=== PATIENT | male | born 1935 | race Caucasian/White ===

== ENCOUNTER 2018-01-20 13:28 | Inpatient (IN) | payer MEDICARE, MEDICAID ==
[~2018-01-20 13:28] MED LIST: Heparin 1,000 UNITS/ML VIAL ONE
[2018-01-20] MEDS ORDERED: Propofol 1,000 MG/100 ML VIAL IV ONE (13:42)
[2018-01-20 13:45] LABS: CO2 Tension 47.2 mmHg (35.0-45.0); O2 Tension (PaO2) 91.1 mmHg (80.0-100.0); pH, Arterial 7.25 (7.35-7.45)
[2018-01-20 13:46] LABS: Actual Bicarbonate (HCO3a) 20.1 mEq/L (22-26); Base Excess (BEa) -7.3 mEq/L (0 (+/-) 2.5); Calcium, Ionized 1.1 mmol/L (1.12-1.30); Hemoglobin (Hb) 16.3 g/dL (14.0-18.0)
[2018-01-20 13:47] LABS: Analyzer IN Cardio ER; Puncture Site LRA
[2018-01-20 13:53] LABS: Hemoglobin 16.8 g/dL (14.0-18.0); Mean Corpuscular HGB CONC 32.1 g/dL (32.0-36.0); Mean Corpuscular Hemoglobin 29.2 pg (27.0-31.0); Mean Corpuscular Volume 91.2 fl (80.0-94.0); Mean Platelet Volume 7.8 fL (7.4-10.4); Platelet Count 301 thou/uL (130-400); Red Blood Cell (RBC) Count 5.76 mill/uL (4.70-6.10)
[2018-01-20] MEDS ORDERED: Famotidine 40 MG/4 ML VIAL SLOW IVP SCH ×3 (14:00→21:00)
[2018-01-20 14:08] LABS: Band 12 % (5-11); Lymphocytes 35 % (21-51); MDiff Complete? YES; Metamyelocyte 1 % (0-0); Monocytes 5 % (0-10); Neutrophil 33 % (42-75); PLT Morphology Comment Appears Adequate; RBC Morphology Normal; Reactive Lymphocytes 12 % (0-10)
[2018-01-20] MEDS ORDERED: Aspirin 300 MG Suppository ONE (14:48)
--- NOTE | 2018-01-20 14:53 | CT ---
CT CERVICAL SPINE NONCONTRAST: Date: 01/20/18 HISTORY: Fall. Neck injury. FINDINGS: Vertebral body height and alignment are maintained. Cervicothoracic junction is intact. There is mult ilevel disc space narrowing and prominent osteophytosis. Minimal degenerative retrolisthesis is prese nt at the C4-5 level where central canal stenosis and right foraminal stenosis are also most severe. No acute fracture or dislocation. Nasogastric tube and endotracheal catheter are partially visualized . IMPRESSION: Cervical spondylosis. No acute osseous abnormalities are demonstrated. POS: [facility]
--- NOTE | 2018-01-20 15:01 | CT ---
CT BRAIN NONCONTRAST: DATE: 01/20/18 TIME: 1413 HOURS HISTORY: 82-year-old male with altered mental status (Chanda coma scale of 4) after being attacked by a swarm of bees. COMPARISON: 01/08/13 FINDINGS: Nasogastric tube is looped in the oropharynx, incompletely visualized. Endotracheal tube is visualize d in the oral cavity, incompletely visualized. No other interval change is identified compared to 01/08/13. Again demonstrated are the large regions of encephalomalacia and gliosis involving the left temporal, parietal, and occipital lobes, and smal l portions of the left superior frontal lobe. 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 There is no obstructive hydrocephalus, acute intra-axial or extra-axial hemorrhage, mass effe ct, or midline shift. The calvarium is intact. The paranasal sinuses and bilateral tympanomastoid cav ities are grossly clear. No interval change in the intracranial contents compared to 01/08/13. IMPRESSION: 1. No acute intracranial findings. 2. Evidence for large infarctions in the left middle cerebral artery territory and left posterior ce rebral artery territory. 3. Status post intubation and nasogastric tube placement. The nasogastric tube is looped in the orop harynx. WILLY Huber POS: [facility]
--- NOTE | 2018-01-20 15:07 | RAD ---
PORTABLE CHEST 1 VIEW: DATE: 01/20/18. TIME: 1:46 p.m. 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 Respiratory failure . FINDINGS: There is an endotracheal tube with tip at the level of the clavicular heads. The heart size is adelfo l. There is atelectatic change in the left lung base. Opacity in the right inferomedial lung base i s also suggestive of atelectatic change. No pneumothoraces or large effusions are seen. POS: C
[2018-01-20] MEDS ORDERED: Milk Of Magnesia 30 ML UDCUP PO PRN (16:26)
[2018-01-20] MEDS ORDERED: Lacri-Lube Opth Oint 3.5 GM TUBE EA EYE PRN (16:26)
[2018-01-20 16:29] LABS: Albumin 3.9 g/dL (3.4-4.8)
[2018-01-20 16:30] LABS: Calcium 9.2 mg/dL (7.8-10.44); Chloride 101 mmol/L (98-107); Sodium 138 mmol/L (136-145)
[2018-01-20 16:31] LABS: Glucose 245 mg/dL (83-110)
[2018-01-20 16:33] LABS: Anion Gap 24 mmol/L (10-20); Bilirubin, Total 0.8 mg/dL (0.2-1.2); Carbon Dioxide 16 mmol/L (23-31)
[2018-01-20 16:34] LABS: Alkaline Phosphatase 144 U/L (40-150)
[2018-01-20 16:35] LABS: BUN (Urea Nitrogen) 13 mg/dL (8.4-25.7); Calc. Creatinine Clearance 0 mL/min (70-130); Estimated GFR-MDRD 38
[2018-01-20 16:37] LABS: ALT (SGPT) 43 U/L (8-55)
[2018-01-20 16:42] LABS: Potassium 2.9 mmol/L (3.5-5.1)
[2018-01-20] MEDS ORDERED: Lorazepam 2 MG/ML VIAL SLOW IVP PRN (16:43)
[2018-01-20] MEDS ORDERED: Propofol BOLUS 1,000 MG/100 ML VIAL IV PRN (16:43)
[2018-01-20] MEDS ORDERED: Fentanyl BOLUS 250 ML IVPB PRN (16:43)
[2018-01-20] MEDS ORDERED: Morphine 4 MG/ML VIAL SLOW IVP PRN (16:43)
[2018-01-20] MEDS ORDERED: fentaNYL Citrate/PF 2,000 MCG in Sodium Chloride 0.9% 60 ML IV SCH (16:43)
[2018-01-20] MEDS ORDERED: Ventilator Sedation Protocol 1 EACH FS SCH (16:45)
[2018-01-20 16:46] LABS: AST (SGOT) 134 U/L (5-34)
[2018-01-20 16:47] LABS: Protein, Total 8.9 g/dL (5.8-8.1)
[2018-01-20] MEDS: Sodium Chloride 0.9% 1,000 ML IV SCH (17:50)
[2018-01-20] MEDS: diphenhydrAMINE 50 MG/ML VIAL IVP SCH ×2 (17:54→22:54)
[2018-01-20] MEDS ORDERED: Potassium Chloride 40 MEQ in Premix Bag 1 BAG IVPB PRN (19:34)
[2018-01-20] MEDS ORDERED: Potassium Phosphate 15 MMOL in Sodium Chloride 0.9% 250 ML 250 ML IV PRN (19:34)
[2018-01-20] MEDS ORDERED: Potassium Chloride 20 MEQ TAB PO PRN (19:34)
[2018-01-20] MEDS ORDERED: Magnesium Oxide 400 MG TAB PO PRN ×2 (19:34)
[2018-01-20] MEDS ORDERED: CCU ELECTROLYTE REPLACEMENT PROTOCOL FS PRN (19:34)
[2018-01-20] MEDS ORDERED: Potassium Phosphate 9 MMOL in Sodium Chloride 0.9% 100 ML IVPB PRN (19:34)
[2018-01-20] MEDS ORDERED: Magnesium 2 GM/NS 0.9% 100 ML 2 GM in Premix Bag 1 BAG IVPB PRN (19:34)
[2018-01-20] MEDS ORDERED: Potassium Phosphate 12 MMOL in Sodium Chloride 0.9% 250 ML 250 ML IV PRN (19:34)
[2018-01-20] MEDS ORDERED: Potassium Chloride 40 MEQ in Sodium Chloride 0.9% 250 ML 250 ML IVPB PRN (19:34)
[2018-01-20] MEDS: Pantoprazole 40 MG VIAL IVP SCH (20:48)
--- NOTE | 2018-01-20 22:02 | HP ---
DATE OF ADMISSION: 01/20/2018 CHIEF COMPLAINT: Severe anaphylaxis. HISTORY OF PRESENT ILLNESS: Mr. Srini Pires is an 82-year-old male who was brought in by EMS with anaphylaxis. The patient was riding a lawnmower and mowing the lawn when he was attacked by the multiple bees. It took the EMS 45 minutes to remove the patient from bee vicinity. The patient was lethargic ,had decreased level of consciousness and was incoherently mumbling. The patient was intubated at the scene. He had similar episode of anaphylaxis to bee sting 3 years ago. So, the patient was brought to the emergency room. The patient received Pepcid, started on IV fluids, and kept on propofol and admitted to CCU for close monitoring and also was started on DuoNebs and Solu-Medrol. PAST MEDICAL HISTORY: 1. Hypertension. 2. Hyperlipidemia. 3. History of CVA in 2011. 4. History of respiratory failure secondary to bee sting in 2014. PAST SURGICAL HISTORY: Nothing significant. CURRENT MEDICATIONS: The patient is supposed to be on Norvasc 10 mg daily, Tylenol p.r.n., and Protonix 40 mg daily. ALLERGIES: BEE STING. FAMILY HISTORY: Nothing of interest. SOCIAL HISTORY: The patient lives alone. No history of smoking. No history of alcohol intake. REVIEW OF SYSTEMS: Unable to obtain because the patient was intubated and sedated. PHYSICAL EXAMINATION: VITAL SIGNS: Temperature 98, pulse 115, respirations 19, blood pressure 150/90. HEENT: Head is normocephalic, atraumatic. Pupils equal and reactive. Nasopharynx not examined. LUNGS: Air entry present bilaterally, no rales, no rhonchi present bilaterally. CARDIAC: S1, S2 regular. ABDOMEN: Soft, distant, no tenderness. Normal bowel sounds present. RECTAL: Not examined. SKIN: There are multiple bee sting fine seen on the face and scalp and the neck. LABORATORY AND X-RAY FINDINGS: CBC shows WBC 22, hemoglobin 16, hematocrit 52, platelets 301. Metabolic panel, sodium 138, potassium 2.9, chloride 101, CO2 of 16, BUN 13, creatinine 0.7, and glucose 245. ABG showed pH of 7.25, pCO2 of 47, pO2 of 491, and saturation 96%. Chest x-ray negative, showed mild atelectasis. CT of the brain, no acute intracranial finding, showed old infarctions in the left middle cerebral artery territory and left posterior cerebral artery territory. ASSESSMENT: 1. Severe anaphylaxis due to bee sting with acute respiratory failure. 2. History of hypertension. 3. History of hyperlipidemia. 4. History of bee sting allergy. 5. severe hypokalemia PLAN: 1. Continue ventilator support. 2. CCU monitoring. 3. Solu-Medrol 40 mg IVP q.6 hours, Pepcid 20 mg IVP q.12 hours, DuoNebs q.i.d. p.r.n., Benadryl IVP q.6 hours 50 mg, and Lovenox 40 mg subcutaneous daily. We will obtain labs in the morning. MTDD
[2018-01-20] MEDS: Propofol 1,000 MG/100 ML VIAL IV PRN (22:24)
[2018-01-21] MEDS ORDERED: Sodium Chloride 0.9% 1,000 ML IV SCH (01:15)
[2018-01-21 04:58] LABS: Band 25 % (5-11); Hemoglobin 16.9 g/dL (14.0-18.0); Lymphocytes 12 % (21-51); MDiff Complete? YES; Mean Corpuscular HGB CONC 32.7 g/dL (32.0-36.0); Mean Corpuscular Hemoglobin 29.5 pg (27.0-31.0); Mean Corpuscular Volume 90.2 fl (80.0-94.0); Mean Platelet Volume 7.7 fL (7.4-10.4); Monocytes 9 % (0-10); Neutrophil 54 % (42-75); PLT Morphology Comment Appears Adequate; Platelet Count 291 thou/uL (130-400); RBC Distribution Width 14.8 % (11.5-14.5); Red Blood Cell (RBC) Count 5.71 mill/uL (4.70-6.10); White Blood Cell (WBC) Count 22.3 thou/uL (4.8-10.8)
[2018-01-21] MEDS: diphenhydrAMINE 50 MG/ML VIAL IVP SCH ×4 (05:01→23:17)
[2018-01-21 05:16] LABS: Anion Gap 21 mmol/L (10-20); BUN (Urea Nitrogen) 25 mg/dL (8.4-25.7); Calc. Creatinine Clearance 25 mL/min (70-130); Carbon Dioxide 15 mmol/L (23-31); Chloride 107 mmol/L (98-107); Estimated GFR-MDRD 23; Glucose 198 mg/dL (83-110); Magnesium 2.4 mg/dL (1.6-2.6); Phosphorus 4.2 mg/dL (2.3-4.7); Potassium 4.3 mmol/L (3.5-5.1); Sodium 139 mmol/L (136-145)
[2018-01-21] MEDS: Sodium Chloride 0.9% 1,000 ML IV SCH (05:19)
--- NOTE | 2018-01-21 07:22 | PRG ---
DATE OF SERVICE: 01/21/2018 SERVICE: Pulmonary Medicine INTERVAL HISTORY: His urine output dropped off overnight. He also had episodes of trigeminy and int erposed with a normal sinus rhythm. Outside of this, there has been no interval events. He is curre ntly sedated on mechanical ventilation. He cannot provide additional elements of the history. PHYSICAL EXAMINATION: VITAL SIGNS: Afebrile, pulse 79, blood pressure 131/75, respirations 14, saturation 96% on 27% FiO2 and a PEEP of 5. GENERAL: The patient is intubated, sedated. HEENT: Normocephalic, atraumatic. Sclerae are white, conjunctivae pink. Oral mucosa is moist witho ut lesions. LUNGS: Decent air entry. There is no prolonged expiratory phase or wheezing. No rhonchi or crackle s are appreciated. HEART: Normal rate, regular. ABDOMEN: Soft, nontender, nondistended. Bowel sounds are positive. MUSCULOSKELETAL: No cyanosis or clubbing. There is diffuse edema present which is nonpitting in fas hion. NEUROLOGIC: Grossly nonfocal. He is moving all 4 extremities spontaneously, but not really followin g any commands at this point. LABORATORY DATA: WBC 22.3, hemoglobin 16.9, platelets 291,000. Band count is 25%. Neutrophil count is 54%. PH 7.25, pCO2 47, pO2 91.1. Creatinine 2.66 and trending upward. Anion gap 21 and improvi ng, bicarbonate 15. Sodium 4.3. ASSESSMENT: 1. Acute hypoxic respiratory failure. 2. Anaphylaxis with hypotension, secondary to hymenoptera. 3. Bee stings, thousands. 4. History of alcohol abuse. PLAN: The patient is doing a little bit better from a respiratory standpoint. Unfortunately, his ki dneys have been injured. He has developed a little bit of an increasing acidosis. This is more of a non-gap in fashion. As such, I will switch his IV fluids over to D5 water with 2 amps of bicarbonat e. That can run for the next 24 hours. His kidney injury is most likely associated with the way the episode of hypotension that he had. If it continues or if it does not open up over the next 24 hour s, additional investigation may be considered. For the time being, steroids and antihistamines will be continued. Empiric antibiotics can be considered if the patient develops any overt signs of infec tious process, but I am inclined to believe that his elevated white blood cell count is still associa amber with the severe event that occurred. Skin jenna will be covered if empiric antibiotics are initi ated. Critical care time: 30 minutes.
--- NOTE | 2018-01-21 07:39 | CON ---
DATE OF CONSULTATION: 01/20/2018 SERVICE: Pulmonary Medicine. REASON FOR CONSULTATION: Respiratory failure. HISTORY OF PRESENT ILLNESS: The patient is an 82-year-old white male with past medical history significant for essentially nothing. He was in his usual state of health when he was mowing his lawn. He ended up getting hundreds of bee stings. He was subsequently brought to the emergency department. He is intubated by EMS out in the field. He received multiple doses of epinephrine. Prior to this, it is my understanding that he was in his usual state of health. He has not been in the hospital recently. Everything that I am dictating is based on old records. PAST MEDICAL HISTORY: 1. Dyslipidemia. 2. Hypertension. 3. History of CVA in 2011. 4. Respiratory failure secondary to obesity. PAST SURGICAL HISTORY: None. FAMILY HISTORY: Noncontributory. SOCIAL HISTORY: Previously, he lived alone. He had no history of smoking, alcohol, or illicit drug use. ALLERGIES: No known drug allergies. MEDICATIONS: List of his inpatient medications were reviewed. No specific updates were made at this time. REVIEW OF SYSTEMS: This cannot be obtained as the patient is currently intubated and sedated. PHYSICAL EXAMINATION: HEENT: Normocephalic, atraumatic. Sclerae are white, conjunctivae pink. Oral and nasal mucosae are moist without lesions. I do have reports of anaphylaxis with angioedema. All of that is resolved at this point. There is 100s of bee stings located throughout his upper and lower extremities. His face is actually riddled with bee stingers. We are actively attempting to pull as many out as we can find. LUNGS: Decent air entry bilaterally. There is no prolonged expiratory phase. I do not appreciate any wheezing or rhonchi. HEART: Tachycardic. Regular. ABDOMEN: Soft, nontender, nondistended. Bowel sounds are positive. MUSCULOSKELETAL: No cyanosis or clubbing. There is no pitting in the bilateral lower extremities. NEUROLOGIC: Grossly nonfocal. LABORATORY DATA: WBC 22.0, hemoglobin 16.8, platelets 301,000. PH 7.25, pCO2 of 47, pO2 of 91 on an FIO2 of 50% at that time. Basic metabolic profile and liver function studies were essentially unremarkable. BNP is normal. Troponin 0.01. Vitamin B12 219, T4 of 6.6. IMAGIN. Chest x-ray demonstrates endotracheal tube is in decent position, roughly 4 cm above the level of the eliseo. There is overlying tubes and wires present. There is pleural parenchymal opacification in the left base. There is a right hilar fullness present. Lung volumes are low. 2. CT of the C-spine demonstrates cervical spondylosis without osseous abnormality. 3. CT of brain demonstrates no acute intracranial abnormality. There is evidence for large infarction left middle cerebral artery territory and left posterior cerebral artery territory, which has been longstanding. The nasogastric tube was looped in the posterior oropharynx. ASSESSMENT: 1. Acute hypoxic respiratory failure. 2. Anaphylaxis secondary to extreme hymenoptera envenomation. PLAN: We will give the patient an H2 diana, as well as a nonselective anticholinergic medication. He will also be put on steroids to prevent a delayed type hypersensitivity reaction. He will remain on mechanical ventilation for the next 24 hours. He does not have any requirements for epinephrine. Moving forward, extubation will be considered first thing in the morning. We will wean oxygen as tolerated. I will back off on a rate just a touch as he started to over breathe the ventilator much more comfortably. I am not going to be too terribly aggressive with his blood pressures at this point. We will try to keep him under systolic blood pressure of 180. This is likely being driven by his epinephrine, acute envenomation. We will continue maintenance fluids through the evening. Critical care time: 30 minutes. AKILA
[2018-01-21] MEDS: Sodium Bicarbonate 100 MEQ in Dextrose 5% in Water 1,000 ML IV SCH ×2 (09:07→21:40)
[2018-01-21] MEDS: Aspirin 300 MG Suppository PR SCH (09:08)
[2018-01-21] MEDS: Propofol 1,000 MG/100 ML VIAL IV PRN ×2 (10:09→21:30)
[2018-01-21] MEDS: Pantoprazole 40 MG VIAL IVP SCH (21:29)
[2018-01-22] MEDS: diphenhydrAMINE 50 MG/ML VIAL IVP SCH ×4 (05:03→22:18)
[2018-01-22] MEDS: Aspirin 300 MG Suppository PR SCH (09:29)
--- NOTE | 2018-01-22 09:34 | PRG ---
DATE OF SERVICE: 01/22/2018 SERVICE: Pulmonary Medicine. SUBJECTIVE: The patient is doing fine from a respiratory standpoint. His lower lip is swelling a li ttle bit more today. His left eye is also swelling a touch more. That being said, he passes cuff le ak test. He is following commands. He is on a sedation holiday currently. There were no overnight events. PHYSICAL EXAMINATION: VITAL SIGNS: Afebrile currently with a T-max of 99.1, pulse 84, blood pressure 115/62, respirations 16, saturation 96% on room air. GENERAL: The patient is awake and alert, in no apparent distress. LUNGS: Decent air entry bilaterally. There is not much of a prolonged expiratory phase or wheezing present. Dependent crackles are minimal. HEART: Normal rate, regular. ABDOMEN: Soft, nontender, nondistended. Bowel sounds are positive. MUSCULOSKELETAL: No cyanosis or clubbing. There is diffuse pitting throughout. GENITOURINARY: Crystal catheter in place. NEUROLOGIC: Grossly nonfocal. ASSESSMENT: 1. Acute hypoxic respiratory failure. 2. Anaphylaxis with hypotension, secondary to hymenoptera envenomation. 3. BEE stings, hundreds, perhaps thousands. 4. History of alcohol abuse. PLAN: We will put the patient on spontaneous breathing trial at 5/5. When he meets criteria, extuba tion will be considered. I will get some stat laboratories right now and we will repeat laboratories tomorrow morning. Pulmonary and Critical Care will continue to follow along. CRITICAL CARE TIME: 30 minutes.
[2018-01-22 09:51] LABS: Hemoglobin 15.6 g/dL (14.0-18.0); Mean Corpuscular HGB CONC 33.8 g/dL (32.0-36.0); Mean Corpuscular Volume 88.6 fl (80.0-94.0); Mean Platelet Volume 8.2 fL (7.4-10.4); Platelet Count 144 thou/uL (130-400); RBC Distribution Width 15.3 % (11.5-14.5); Red Blood Cell (RBC) Count 5.21 mill/uL (4.70-6.10); White Blood Cell (WBC) Count 17.3 thou/uL (4.8-10.8)
[2018-01-22 10:21] LABS: Band 42 % (5-11); Lymphocytes 2 % (21-51); MDiff Complete? YES; Metamyelocyte 1 % (0-0); Monocytes 6 % (0-10); Neutrophil 45 % (42-75); PLT Morphology Comment Appears Adequate; RBC Morphology Normal; Reactive Lymphocytes 4 % (0-10); Toxic Granulation SLIGHT; Vacuoles SLIGHT
[2018-01-22] MEDS: Propofol 1,000 MG/100 ML VIAL IV PRN ×2 (11:00→22:17)
[2018-01-22 12:13] LABS: Anion Gap 21 mmol/L (10-20); BUN (Urea Nitrogen) 64 mg/dL (8.4-25.7); Calc. Creatinine Clearance 14 mL/min (70-130); Calcium 7.5 mg/dL (7.8-10.44); Carbon Dioxide 18 mmol/L (23-31); Chloride 101 mmol/L (98-107); Estimated GFR-MDRD 11; Glucose 113 mg/dL (83-110); Potassium 5.4 mmol/L (3.5-5.1); Sodium 135 mmol/L (136-145)
[2018-01-22] MEDS: Sodium Bicarbonate 100 MEQ in Dextrose 5% in Water 1,000 ML IV SCH (14:09)
[2018-01-22] MEDS: Pantoprazole 40 MG VIAL IVP SCH (20:27)
[2018-01-23] MEDS: Sodium Bicarbonate 100 MEQ in Dextrose 5% in Water 1,000 ML IV SCH ×2 (03:17→09:40)
[2018-01-23] MEDS: diphenhydrAMINE 50 MG/ML VIAL IVP SCH ×3 (05:09→20:19)
[2018-01-23 05:15] LABS: Anion Gap 20 mmol/L (10-20); BUN (Urea Nitrogen) 80 mg/dL (8.4-25.7); Calc. Creatinine Clearance 11 mL/min (70-130); Calcium 7.6 mg/dL (7.8-10.44); Carbon Dioxide 22 mmol/L (23-31); Chloride 96 mmol/L (98-107); Estimated GFR-MDRD 8; Glucose 110 mg/dL (83-110); Potassium 5.2 mmol/L (3.5-5.1); Sodium 133 mmol/L (136-145)
[2018-01-23 05:35] LABS: Band 22 % (5-11); Hemoglobin 14.5 g/dL (14.0-18.0); Lymphocytes 7 % (21-51); MDiff Complete? YES; Mean Corpuscular HGB CONC 34.7 g/dL (32.0-36.0); Mean Corpuscular Hemoglobin 30.5 pg (27.0-31.0); Mean Platelet Volume 9.3 fL (7.4-10.4); Monocytes 9 % (0-10); Neutrophil 62 % (42-75); PLT Morphology Comment Appears Decreased; Platelet Count 82 thou/uL (130-400); RBC Distribution Width 15.1 % (11.5-14.5); Red Blood Cell (RBC) Count 4.75 mill/uL (4.70-6.10); Toxic Granulation SLIGHT; Vacuoles SLIGHT; White Blood Cell (WBC) Count 18.5 thou/uL (4.8-10.8)
[2018-01-23] MEDS ORDERED: Famotidine/PF 20 mg/2ml Vial SLOW IVP SCH (09:00)
[2018-01-23] MEDS ORDERED: Furosemide 40 MG/4 ML VIAL SLOW IVP SCH (09:15)
[2018-01-23] MEDS: Aspirin 300 MG Suppository PR SCH (09:40)
[2018-01-23 09:56] LABS: INR-International Normal Ratio 1.2; PTT 31.6 SEC (22.9-36.1); Prothrombin Time 15.1 SEC (12.0-14.7)
[2018-01-23] MEDS ORDERED: Famotidine 40 MG/4 ML VIAL SLOW IVP SCH (10:00)
[2018-01-23] MEDS: Propofol 1,000 MG/100 ML VIAL IV PRN ×3 (10:16→21:33)
[2018-01-23 10:29] LABS: Fibrinogen 903 mg/dL (253-463)
[2018-01-23 11:13] LABS: Platelet Count 65 thou/uL (130-400)
[2018-01-23 11:25] LABS: FSP-Qualitative ABNORMAL (Normal)
[2018-01-23 11:26] LABS: FSP-Semiquantitative >=5 & <20 mcg/mL (Less than 5)
[2018-01-23] MEDS: Piperacillin/Tazobactam 2.25 GM in Sodium Chloride 0.9% 100 ML IVPB SCH ×2 (12:57→17:17)
[2018-01-23] MEDS ORDERED: Acetaminophen 1,000 MG in Premix Bag 1 BAG IVPB PRN (13:34)
--- NOTE | 2018-01-23 15:33 | PRG ---
DATE OF SERVICE: 01/23/2018 SERVICE: Pulmonary Medicine. INTERVAL HISTORY: The patient is doing fine from a respiratory standpoint. The oxygen requirements are creeping up a little bit. That being said, we do not have control of his volume status. He remains anuric. There are signs to suggest that his urine output is improving a little bit. As such, I am hopeful that will have control of this volume status in 24 hours. He cannot provide any additional elements of the history. He had a temperature this morning. OBJECTIVE: VITAL SIGNS: T-max 100.9, pulse 82, blood pressure 106/57, respirations 81, saturation 93% on 31% FiO2 and a PEEP of 5. GENERAL: The patient is awake and alert. No apparent distress. LUNGS: Decent air entry. There is no prolonged expiratory phase or wheezing present. Crackles are present. HEART: Normal rate, regular. ABDOMEN: Soft, nontender, nondistended. Bowel sounds are positive. MUSCULOSKELETAL: No cyanosis or clubbing. There is no pitting in the bilateral lower extremities. NEUROLOGIC: Grossly nonfocal. LABORATORY DATA: WBC 18.5 and up trending, hemoglobin 14.5, platelets 82,000 and dropping significantly. INR 1.2. Creatinine 6.51, BUN 80. Basic metabolic profile is otherwise unremarkable. Potassium is gently down trending to 5.2. Sodium is stable at 133. ASSESSMENT: 1. Acute hypoxic respiratory failure. 2. Anaphylaxis with hypotension secondary to hymenoptera envenomation. 3. Bee stings, 100s, perhaps 1000s. 4. Acute kidney injury, likely improving based on urine output. 5. Alcohol abuse. PLAN: We will give him a dose of Lasix to see if we can open up the kidneys at touch. We will harvey culture him and initiate empiric antibiotics directed at skin and lung pathology. At this point, we cannot consider him for extubation as we do not have control of his volume status, and his oxygen requirements are trending upward. As such, he will remain on mechanical ventilation over the next 24 hours. Tube feeds will be initiated as his gut has demonstrated improving motility. Critical care time: 30 minutes. MTDD
[2018-01-23] MEDS ORDERED: Sodium Bicarbonate Tab 325 MG TAB PER TUBE PRN (15:51)
[2018-01-23] MEDS ORDERED: Pancrelipase DR 12000 1 CAP FS PRN (15:51)
[2018-01-23] MEDS: Heparin 5,000 UNITS/ML VIAL SC SCH (21:22)
[2018-01-24] MEDS: Piperacillin/Tazobactam 2.25 GM in Sodium Chloride 0.9% 100 ML IVPB SCH ×5 (00:28→23:34)
[2018-01-24 03:36] LABS: Actual Bicarbonate (HCO3a) 24.2 mEq/L (22-26); Base Excess (BEa) -0.3 mEq/L (0 (+/-) 2.5); CO2 Tension 39.1 mmHg (35.0-45.0); Hemoglobin (Hb) 12.7 g/dL (14.0-18.0); O2 Tension (PaO2) 54.6 mmHg (80.0-100.0); pH, Arterial 7.41 (7.35-7.45)
[2018-01-24 03:37] LABS: ALV-art Gradient 217.375 (0-20); Calcium, Ionized 0.9 mmol/L (1.12-1.30); Puncture Site RRA
[2018-01-24] MEDS ORDERED: Vecuronium 10 MG VIAL IV PRN (03:37)
[2018-01-24 04:42] LABS: Anion Gap 25 mmol/L (10-20); BUN (Urea Nitrogen) 115 mg/dL (8.4-25.7); Calc. Creatinine Clearance 9 mL/min (70-130); Calcium 7.4 mg/dL (7.8-10.44); Carbon Dioxide 21 mmol/L (23-31); Chloride 91 mmol/L (98-107); Estimated GFR-MDRD 6; Glucose 99 mg/dL (83-110); Potassium 5.4 mmol/L (3.5-5.1); Sodium 132 mmol/L (136-145)
[2018-01-24] MEDS: Propofol 1,000 MG/100 ML VIAL IV PRN ×2 (05:30→14:41)
[2018-01-24 05:51] LABS: Band 23 % (5-11); Lymphocytes 2 % (21-51); MDiff Complete? YES; Mean Corpuscular HGB CONC 36.8 g/dL (32.0-36.0); Mean Corpuscular Hemoglobin 31.7 pg (27.0-31.0); Mean Corpuscular Volume 86.3 fl (80.0-94.0); Mean Platelet Volume 9.8 fL (7.4-10.4); Monocytes 13 % (0-10); Myelocyte 1 % (0-0); Neutrophil 61 % (42-75); Nucleated RBC 2 % (0); PLT Morphology Comment Appears Decreased; Platelet Count 65 thou/uL (130-400); Red Blood Cell (RBC) Count 4.09 mill/uL (4.70-6.10); White Blood Cell (WBC) Count 13.4 thou/uL (4.8-10.8)
[2018-01-24] MEDS: Sodium Bicarbonate 100 MEQ in Dextrose 5% in Water 1,000 ML IV SCH (06:03)
--- NOTE | 2018-01-24 08:15 | RAD ---
CHEST 1 VIEW: Date: 01/24/18 HISTORY: 82-year-old male with history of respiratory insufficiency, intubation, sepsis, increasing O2 demands . FINDINGS: NG tube and endotracheal tubes are in satisfactory location. There are patchy alveolar nodular parenc hymal changes over the mid lung zones and perihilar regions bilaterally with some probable right pleu ral effusion. These changes have developed since the prior 01/20/18 study. IMPRESSION: Developing patchy bilateral alveolar nodular parenchymal changes throughout the mid lung zones and lo wer lung zones with some right costophrenic angle since the prior study, evidence for bilateral pneum onia or possibly aspiration. Continue short-term follow-up. POS: OFF
[2018-01-24] MEDS ORDERED: Sodium Bicarbonate 100 MEQ in Dextrose 5% in Water 1,000 ML IV SCH (09:12)
[2018-01-24] MEDS ORDERED: Furosemide 100 MG/10 ML VIAL SLOW IVP SCH (09:30)
[2018-01-24] MEDS ORDERED: Vancomycin HCl 1.5 GM in Sodium Chloride 0.9% 250 ML 300 ML IVPB SCH (10:00)
[2018-01-24] MEDS: Heparin 5,000 UNITS/ML VIAL SC SCH ×2 (10:30→20:13)
[2018-01-24] MEDS: diphenhydrAMINE 50 MG/ML VIAL IVP SCH ×2 (10:31→20:13)
--- NOTE | 2018-01-24 10:33 | CON ---
DATE OF CONSULTATION: 01/24/2018 HISTORY OF PRESENT ILLNESS: Mr. Pires is 82-year-old white male who was admitted for severe anaph ylaxis. He was noted to have mental status change. He was found to be in multiorgan dysfunction. Taylor hirsch was subsequently intubated and placed on ventilator support. We are now being consulted for his ac [place] kidney injury. His initial creatinine on admission showed value of 1.72 and it is now currently at 8.08. Please note last year, his creatinine was within normal. REVIEW OF SYSTEMS: Not obtainable since patient is to be on ventilator support. MEDICATIONS: Currently on DuoNeb q.6, aspirin 81 mg daily, Benadryl 50 mg IV q.12, Pepcid 20 mg IV d aily, fentanyl boluses, furosemide 80 mg IV daily, methylprednisolone 40 mg IV daily, Zofran p.r.n., Zosyn 2.25 grams IV q.6, Diprivan drip, and vancomycin as directed. PAST MEDICAL HISTORY: 1. Recent diagnosis of anaphylactic shock secondary to beestings. 2. Hypertension. 3. Hyperlipidemia. 4. Status post CVA in 2011. 5. Acute respiratory failure from previous beesting. PAST SURGICAL HISTORY: No significant surgeries. SOCIAL HISTORY: The patient is from the [facility], lives alone. No history of smoking, no alcohol intake, no IV drug abuse. FAMILY HISTORY: Noncontributory. ALLERGIES: BEESTING. TRAUMA: None. IMMUNIZATIONS: Unknown. HOSPITALIZATIONS: Please see past medical history. PHYSICAL EXAMINATION: VITAL SIGNS: Blood pressure is noted at 112/66, heart rate 72, respiratory rate is 12, pulse ox 94%, and temperature 98.4. GENERAL: Patient is sedated and intubated on ventilator support. SKIN: Adequate turgor. HEENT: He has pinkish conjunctivae, anicteric sclerae. NECK: No neck mass, no carotid bruits, no JVD. CHEST: No deformities. Patient is positive for facial swelling. LUNGS: Decreased breath sounds, no wheezing. HEART: Normal sinus rhythm. No murmurs, no gallops, no rubs. ABDOMEN: Globular, soft, nontender, no masses. EXTREMITIES: Positive for edema. NEUROLOGIC: Patient is sedated and intubated. LABORATORY DATA AND IMAGING DATA: 1. Laboratories of 01/24/2018; sodium 132, potassium 5.4, chloride 91, carbon dioxide 21, BUN 115, a nd creatinine 8.08. 2. On 01/23/2018, creatinine 6.51. 3. On 01/22/2018, creatinine 5.1. 4. On 01/21/2018, creatinine 2.66. 5. On 01/20/2018, creatinine 1.7. 6. On 01/03/2017, creatinine 1.18. 7. Chest x-ray on 01/24/2018 shows bilateral alveolar nodular parenchymal changes with consideration for bilateral pneumonia. ASSESSMENT AND PLAN: Acute kidney injury - unclear if the patient may have already a superimposed ac [place] tubular necrosis versus an acute interstitial nephritis secondary to the anaphylactic shock from the beestings. Currently, patient is on steroids. If renal function continues to further worsen, we may need to intervene with dialytic intervention. For the moment, I think we can hold off the dialy sis for today. I will review urine sediment with this patient as well as urine chemistries. A renal ultrasound has also been ordered. Overall, agree with current management. No indication for emergent dialysis today. Thank you for the consult. We will continue to follow.
[2018-01-24] MEDS: Famotidine 40 MG/4 ML VIAL SLOW IVP SCH (10:34)
[2018-01-24] MEDS: Albumin 25% 25 GM/100 ML BOT IVPB SCH ×3 (10:58→22:41)
[2018-01-24 11:36] LABS: Bilirubin Negative (Negative); Blood, Urine Large (Negative); Clarity CLOUDY (Clear); Glucose, Urine (Dipstick) 100 mg/dL (Negative); Leukocyte Trace (Negative); Nitrite Negative (Negative); Protein, Urine (Dipstick) 30 mg/dL (Neg-Trace); Specific Gravity, Urine 1.011 (1.002-1.036); pH, Urine 7.5 (5.0-9.0)
[2018-01-24 11:39] LABS: Bacteria/HPF None Seen HPF (None Seen); Hyaline Casts/LPF 0-3 HYALINE CAST LPF (0-3 Hyaline); Pathc Cast-AUWi Flag 0.87 (0-2.49); RBC/HPF GREATER THAN 50-TNTC HPF (0-3); Squamous Epithelial 0-3 HPF (0-3)
--- NOTE | 2018-01-24 11:53 | PRG ---
DATE OF SERVICE: 01/24/2018 SERVICE: Pulmonary Medicine. INTERVAL HISTORY: The patient is doing fine from a respiratory standpoint. He is breathing comfortably. He cannot provide additional elements of the history because he is currently encephalopathic and under the influence of some sedation. That being said, he had an uneventful evening. His oxygen requirements have trended upward once again. Yesterday, we sent multiple samples off. Chest x-ray was consistent with interval development of an infiltrate which was likely present on admission secondary to overt aspiration. PHYSICAL EXAMINATION: VITAL SIGNS: Afebrile with a T-max overnight of 100.9, pulse 72, blood pressure 112/66, respirations 26, saturation 94% on 50% FiO2 and a PEEP of 7. GENERAL: Patient is intubated and sedated. HEENT: Normocephalic, atraumatic. Sclerae are white, conjunctivae pink. Oral mucosa is moist without lesions. LUNGS: Crackles are present. No prolonged expiratory phase or wheezing is appreciated. HEART: Normal rate and regular. ABDOMEN: Soft, nontender, nondistended. Bowel sounds are positive. MUSCULOSKELETAL: No cyanosis or clubbing. There is diffuse pitting throughout. GENITOURINARY: No Crystal. NEUROLOGIC: Grossly nonfocal. LABORATORY DATA: WBC 13.4, hemoglobin 13.0, platelets 65,000 and roughly stable. Band count is stable at 23%. INR 1.2 and fibrinogen 903. A pH 7.41, pCO2 39, pO2 54 on 45% FiO2 at that time. Creatinine 8.08, BUN 115 and rising, anion gap 25, bicarbonate 21. Basic metabolic profile is otherwise unremarkable /stable. Blood cultures x2 are negative today. Respiratory cultures are negative so far, though there are multiple species there including gram positive cocci in pairs and clusters. IMAGING: Chest x-ray demonstrates bilateral parenchymal opacifications that have developed. ASSESSMENT: 1. Acute hypoxic respiratory failure. 2. Anaphylaxis with hypotension secondary to hymenoptera envenomation. 3. BEE stings, 100s, perhaps 1000s. 4. Acute kidney injury, continuing to improve. 5. Alcohol abuse. PLAN: I do think the patient's kidney injury is improving. That being said, volume status and BUN are preventing me from extubating him. We will give him another dose of Lasix. If he does not start putting urine out with this, we may need to intervene with dialysis starting today. There is certainly no emergent need for at this time. That being said, Nephrology consultation will be placed in case we need it. I cannot consider extubation until we have definitive control of his volume status. We will get daily laboratories. CRITICAL CARE TIME: 30 minutes. AKILA
[2018-01-24 11:54] LABS: Creatinine, Urine 22.66 mg/dL (63-166)
--- NOTE | 2018-01-24 15:16 | ULT ---
RENAL SONOGRAM: History: Renal failure. FINDINGS: Right kidney is 11.9 cm length and left is 12.4 cm. Each has a normal sonographic appearance without evidence of mass, stone, or hydronephrosis. Urinary bladder is decompressed by a Crystal catheter. IMPRESSION: No evidence of urinary tract obstruction. No significant abnormalities are demonstrated. POS: [facility]
[2018-01-25] MEDS: Propofol 1,000 MG/100 ML VIAL IV PRN ×3 (01:04→17:12)
[2018-01-25] MEDS: Albumin 25% 25 GM/100 ML BOT IVPB SCH ×4 (03:54→21:54)
[2018-01-25 04:23] LABS: Anion Gap 24 mmol/L (10-20); Calc. Creatinine Clearance 8 mL/min (70-130); Calcium 7.5 mg/dL (7.8-10.44); Carbon Dioxide 21 mmol/L (23-31); Chloride 90 mmol/L (98-107); Estimated GFR-MDRD 6; Glucose 123 mg/dL (83-110); Sodium 130 mmol/L (136-145)
[2018-01-25 04:35] LABS: BUN (Urea Nitrogen) 142 mg/dL (8.4-25.7)
[2018-01-25 04:37] LABS: Band 15 % (5-11); Eosinophils 1 % (0-10); Hemoglobin 10.3 g/dL (14.0-18.0); Lymphocytes 7 % (21-51); MDiff Complete? YES; Mean Corpuscular HGB CONC 35.2 g/dL (32.0-36.0); Mean Corpuscular Hemoglobin 30.5 pg (27.0-31.0); Mean Corpuscular Volume 86.6 fl (80.0-94.0); Mean Platelet Volume 11.6 fL (7.4-10.4); Monocytes 6 % (0-10); Neutrophil 71 % (42-75); Nucleated RBC 1 % (0); PLT Morphology Comment Appears Decreased; Platelet Count 57 thou/uL (130-400); RBC Distribution Width 14.6 % (11.5-14.5); Red Blood Cell (RBC) Count 3.37 mill/uL (4.70-6.10); Toxic Granulation SLIGHT; White Blood Cell (WBC) Count 12.8 thou/uL (4.8-10.8)
[2018-01-25] MEDS: Piperacillin/Tazobactam 2.25 GM in Sodium Chloride 0.9% 100 ML IVPB SCH (05:20)
[2018-01-25] MEDS ORDERED: Furosemide 100 MG/10 ML VIAL SLOW IVP SCH (08:00)
--- NOTE | 2018-01-25 09:07 | PRG ---
DATE OF SERVICE: 01/25/2018 SERVICE: Pulmonary Medicine. INTERVAL HISTORY: The patient did fine overnight. He started following some simple commands. He ca nnot provide any additional elements of the history. He is currently on some propofol. Blood pressu res are marginal. Otherwise, there were no overnight events. PHYSICAL EXAMINATION: VITAL SIGNS: Afebrile, pulse 68, blood pressure 121/39, respirations 33, saturation 94% on 30% FIO2 and a PEEP of 5. GENERAL: The patient is somnolent and intubated. He will open his eyes with some stimulation, but g o back to sleep within 3 seconds with no stimulation. HEENT: Normocephalic, atraumatic. Sclerae are white, conjunctivae pink. Oral and nasal mucosa is m oist without lesions. LUNGS: Decent air entry bilaterally. There is no prolonged expiratory phase or wheezing appreciated . HEART: Normal rate, regular. ABDOMEN: Soft, nontender, nondistended. Bowel sounds are positive. MUSCULOSKELETAL: No cyanosis or clubbing. There is diffuse edema present. GENITOURINARY: Crystal catheter in place. NEUROLOGIC: Grossly nonfocal. LABORATORY DATA: WBC 12.8, hemoglobin 10.3, platelets 57,000 and roughly stable. Creatinine 8.83, B UN 142, anion gap 24, bicarbonate 21, chloride 90, sodium 130. Urine creatinine is 22, urine sodium 76. IMAGING: Renal ultrasound demonstrates no evidence of obstruction. ASSESSMENT: 1. Acute hypoxic respiratory failure. 2. Anaphylaxis with hypotension secondary to hymenoptera envenomation. 3. Bee stings, hundreds, perhaps thousands. 4. Acute kidney injury, slowly resolving. 5. Volume overload. 6. Alcohol abuse. PLAN: The patient is doing really well from a respiratory standpoint. His mentation is improved a l ittle bit as well. That being said, we really need to have control of his volume status before proce eding with extubation. I once again give him a dose of Lasix. If he does not put anything out today , I think it would be reasonable to do a session or two of dialysis in order to clear Toxins, and pu ll a little bit of volume, so that we can facilitate weaning from the ventilator. We will continue t o minimize fluids moving forward. Pulmonary and Critical Care will continue to follow along. CRITICAL CARE TIME: 30 minutes.
[2018-01-25 09:32] LABS: Vancomycin, Random 14.8 ug/mL (See Comment)
[2018-01-25] MEDS: Heparin 5,000 UNITS/ML VIAL SC SCH ×2 (09:55→21:46)
[2018-01-25] MEDS ORDERED: Famotidine 20 MG TAB PO SCH (10:00)
[2018-01-25] MEDS: Vancomycin HCl 750 MG in Sodium Chloride 0.9% 250 ML 250 ML IVPB SCH (10:09)
[2018-01-25] MEDS ORDERED: Heparin 10,000 UNITS/ 10 ML VIAL ONE (10:59)
[2018-01-25] MEDS: Famotidine 40 MG/4 ML VIAL SLOW IVP SCH (11:10)
--- NOTE | 2018-01-25 14:32 | PRG ---
DATE OF SERVICE: 01/25/2018 SUBJECTIVE: Mr. Pires is an 82-year-old white male, who was admitted due to anaphylactic shock se condary to a bee stings. He has gone to acute kidney injury. Renal imaging was done with no obstruction. However, renal function continues to worsen. My suspici on he may have either an acute interstitial nephritis versus an acute tubular necrosis. He has been receiving steroids at the same time. The patient also remains to be on the anuric to oliguric side. OBJECTIVE: VITAL SIGNS: Blood pressure is 112/69, heart rate 68, respiratory rate 30, pulse ox 96%. GENERAL: The patient is arousable, can follow simple commands. He is intubated on ventilator suppor t. SKIN: Adequate turgor. HEENT: He has pinkish conjunctivae, anicteric sclerae. NECK: No neck mass, no carotid bruits, no JVD. CHEST: No deformities. LUNGS: Decreased breath sounds. HEART: Normal sinus rhythm. No murmur, no gallops, no rubs. ABDOMEN: Noted to be globular, soft, nontender, no masses. EXTREMITIES: No edema. MEDICATIONS: On 01/25/2018 - Reviewed. LABORATORY DATA: On 01/25/2018 - White count 12.8, hemoglobin 10.3. Sodium 130, potassium 5, chlori de 90, carbon dioxide 21, BUN 142, creatinine 8.83, GFR 16 mL per minute. Calcium 7.5. Urinalysis of 01/24/2018, protein is 30, glucose 100, RBC greater than 50, WBC 46. Urine sodium is 7 6. Urine creatinine 22.66. Renal ultrasound, no obstruction. ASSESSMENT AND PLAN: Acute kidney injury - consider the possibility of an intrinsic renal problem - Acute tubular necrosis versus acute interstitial nephritis. I agree with steroids. Due to the worse guilherme renal dysfunction, my bias is to consider hemodialysis. I am awaiting for the sister to call me so I could explain the possible plans for this patient. At the present time, there is no acute diana cation for emergent hemodialysis. Please note his potassium is within normal and his oxygenating alfreda quately. His overall prognosis remains guarded. We will recheck base met and CBC in a.m.
[2018-01-25 15:35] LABS: Hep B Core Total Ab Non-Reactive (NonReactive)
[2018-01-25 15:58] LABS: Hep B Core Total Index 0.08 S/CO (0-0.79)
[2018-01-25 15:59] LABS: HBSAg Index 0.21 S/CO (0-0.99); Hep B Surf Ag Non-Reactive S/CO (NonReactive)
[2018-01-25 16:00] LABS: HBSAB Concentration 0.22 mIU/mL; Hep B Surf AB Non-Reactive (NonReactive)
[2018-01-25 16:01] LABS: Hep C IgG Ab Non-Reactive (NonReactive); Hep C Index 0.07 S/CO (0-0.79)
--- NOTE | 2018-01-25 17:42 | OP ---
PREOPERATIVE DIAGNOSIS: Acute renal failure, in need of dialysis. SURGEON: Stefano Egan M.D. PROCEDURE PERFORMED: Temporary dialysis catheter placement. INDICATIONS: The patient is an 82-year-old male, apparently was stung by bees and nearly , went into renal failure, needs dialysis. FINDINGS: Placed in right femoral vein. PROCEDURE IN DETAIL: After informed consent was obtained, the patient was placed in supine position. His groin was prepped and draped in usual fashion. Local anesthesia was infiltrated subcutaneously and deep with 1% lidocaine. An introducer needle was inserted right femoral vein with good backflow of venous blood. J-wire threaded easily. The skin was incised with an 11 blade. A series of dilat ors were used to dilate the subcu. The dialysis catheter inserted over the wire. The wire was remov ed. Each of the ports was flushed with saline. The catheter was sutured in place with interrupted 3 -0 nylon. A sterile bandage was applied. Patient tolerated the procedure well and was transferred t o recovery in good condition. Sponge and needle count verified correct x2.
--- NOTE | 2018-01-25 23:24 | RAD ---
PORTABLE CHEST ONE VIEW: 01/25/18 at 11:11 p.m. HISTORY: Decrease in oxygen saturation, respiratory failure. FINDINGS/IMPRESSION: Comparison made with exam of previous day. Interval worsening of patchy opacities in the lung sanchez is seen bilaterally since the previous days exam. POS: [facility]
[2018-01-26] MEDS: Propofol 1,000 MG/100 ML VIAL IV PRN ×3 (04:18→16:53)
[2018-01-26] MEDS: Albumin 25% 25 GM/100 ML BOT IVPB SCH ×2 (04:18→09:31)
[2018-01-26 04:54] LABS: Anion Gap 21 mmol/L (10-20); Calc. Creatinine Clearance 10 mL/min (70-130); Calcium 8.1 mg/dL (7.8-10.44); Carbon Dioxide 25 mmol/L (23-31); Chloride 92 mmol/L (98-107); Estimated GFR-MDRD 7; Glucose 112 mg/dL (83-110); Potassium 4.6 mmol/L (3.5-5.1); Sodium 133 mmol/L (136-145)
[2018-01-26 05:05] LABS: BUN (Urea Nitrogen) 121 mg/dL (8.4-25.7)
[2018-01-26 05:15] LABS: Band 14 % (5-11); Hemoglobin 9.5 g/dL (14.0-18.0); Lymphocytes 12 % (21-51); MDiff Complete? YES; Mean Corpuscular HGB CONC 37.9 g/dL (32.0-36.0); Mean Corpuscular Hemoglobin 31.6 pg (27.0-31.0); Mean Corpuscular Volume 83.4 fl (80.0-94.0); Mean Platelet Volume 10.9 fL (7.4-10.4); Monocytes 8 % (0-10); Neutrophil 66 % (42-75); PLT Morphology Comment Appears Decreased; Platelet Count 68 thou/uL (130-400); RBC Distribution Width 14.4 % (11.5-14.5); White Blood Cell (WBC) Count 14.7 thou/uL (4.8-10.8)
[2018-01-26] MEDS: Heparin 5,000 UNITS/ML VIAL SC SCH ×2 (09:31→22:56)
[2018-01-26] MEDS: Famotidine 20 MG TAB PO SCH (09:31)
[2018-01-26] MEDS ORDERED: Heparin 1,000 UNITS/ML VIAL ONE (11:11)
[2018-01-27] MEDS: Propofol 1,000 MG/100 ML VIAL IV PRN ×4 (01:03→23:35)
[2018-01-27 05:02] LABS: Anion Gap 19 mmol/L (10-20); BUN (Urea Nitrogen) 111 mg/dL (8.4-25.7); Calc. Creatinine Clearance 10 mL/min (70-130); Calcium 8.4 mg/dL (7.8-10.44); Carbon Dioxide 24 mmol/L (23-31); Chloride 95 mmol/L (98-107); Estimated GFR-MDRD 8; Glucose 106 mg/dL (83-110); Potassium 3.9 mmol/L (3.5-5.1); Sodium 134 mmol/L (136-145)
[2018-01-27 05:21] LABS: Band 7 % (5-11); Eosinophils 2 % (0-10); Hemoglobin 9.5 g/dL (14.0-18.0); Lymphocytes 15 % (21-51); MDiff Complete? YES; Mean Corpuscular HGB CONC 37.9 g/dL (32.0-36.0); Mean Corpuscular Hemoglobin 31.8 pg (27.0-31.0); Mean Platelet Volume 10.2 fL (7.4-10.4); Metamyelocyte 1 % (0-0); Monocytes 9 % (0-10); Myelocyte 2 % (0-0); Neutrophil 64 % (42-75); PLT Morphology Comment Appears Decreased; Platelet Count 88 thou/uL (130-400); RBC Distribution Width 14.3 % (11.5-14.5); Red Blood Cell (RBC) Count 2.98 mill/uL (4.70-6.10); Spherocytes SLIGHT = 1-5 cells (100X) (None Seen); Toxic Granulation SLIGHT; White Blood Cell (WBC) Count 16.8 thou/uL (4.8-10.8)
[2018-01-27] MEDS: Famotidine 20 MG TAB PO SCH (08:41)
[2018-01-27] MEDS: Heparin 5,000 UNITS/ML VIAL SC SCH ×2 (08:42→21:36)
[2018-01-27] MEDS: Vancomycin HCl 750 MG in Sodium Chloride 0.9% 250 ML 250 ML IVPB SCH (09:37)
[2018-01-27 09:48] LABS: Vancomycin, Random 14.3 ug/mL (See Comment)
--- NOTE | 2018-01-27 10:18 | PRG ---
DATE OF SERVICE: 01/27/2018 SUBJECTIVE: Mr. Pires is an 82-year-old white male who was seen by the Renal Service secondary to acute kidney injury. The presumptive diagnosis is either this is acute tubular necrosis versus acut e interstitial nephritis. He was admitted due to an anaphylactic shock secondary to multiple bee sti ngs. This morning he is undergoing dialysis. I am at the bedside supervising his dialysis. No acute events noted last night. PHYSICAL EXAMINATION: VITAL SIGNS: Blood pressure is 107/46, heart rate 63, respiratory 23, pulse ox 94%. GENERAL: Awake, intubated on ventilator support. SKIN: Adequate turgor. HEENT: He has pinkish conjunctivae, anicteric sclerae. NECK: No neck mass, no carotid bruits, no JVD. CHEST: No deformities. LUNGS: Decreased breath sounds. HEART: Normal sinus rhythm. No murmur, no gallops, no rubs. ABDOMEN: Globular, soft, nontender, no masses. EXTREMITIES: No edema, no deformities. MEDICATIONS: 01/27/2018 - Reviewed. LABORATORY: 01/27/2018 - White count 16.8, hemoglobin 9.5. Sodium 134, potassium 3.9, chloride 95, carbon dioxide 24, BUN 111, creatinine 6.9, glucose 106, calcium 8.4. ASSESSMENT AND PLAN: 1. Acute kidney injury secondary to a probable acute tubular necrosis versus acute interstitial neph ritis. Continue supportive dialysis. My plan is to do a 3-hour hemodialysis with this patient. Flu id removal only as tolerated. Avoiding heparin use for the moment. 2. Acute respiratory failure secondary to anaphylactic shock, currently followed by Pulmonary. The patient currently on IV steroids. Overall, prognosis remains guarded.
[2018-01-27] MEDS ORDERED: Vancomycin HCl 750 MG in Sodium Chloride 0.9% 250 ML 250 ML IVPB SCH (11:00)
[2018-01-27] MEDS ORDERED: Vancomycin HCl 1.25 GM in Sodium Chloride 0.9% 250 ML 250 ML IVPB SCH (11:00)
[2018-01-27] MEDS ORDERED: Vancomycin HCl 1 GM in Premix Bag 1 BAG IVPB SCH (11:00)
[2018-01-27] MEDS ORDERED: Vancomycin HCl 500 MG in Sodium Chloride 0.9% 100 ML IVPB SCH (11:00)
[2018-01-27] MEDS ORDERED: Vancomycin Sliding Scale 1 EACH FS SCH (11:00)
[2018-01-27] MEDS ORDERED: HOLD VANCOMYCIN FOR LEVEL >20 FS SCH (11:00)
[2018-01-27] MEDS ORDERED: Heparin 10,000 UNITS/ 10 ML VIAL ONE (11:11)
--- NOTE | 2018-01-27 13:56 | PRG ---
DATE OF SERVICE: 01/27/2018 SERVICE: Pulmonary Medicine. INTERVAL HISTORY: The patient is doing great from a respiratory standpoint. He is breathing comfortably. He has no chest discomfort, nausea, vomiting, fevers or chills. He is following commands. He indicates that he is breathing comfortably. There were no significant overnight events. His requirements on oxygen have been stable, but remain high. PHYSICAL EXAMINATION: VITAL SIGNS: Afebrile, pulse 67, blood pressure 123/61, respirations 18, saturation 96% on 70% FiO2 and a PEEP of 10. GENERAL: The patient is awake and alert. No apparent distress. LUNGS: Decent air entry. Crackles are present. No prolonged expiratory phase or wheezing is appreciated. HEART: Normal rate, regular. ABDOMEN: Soft, nontender, and nondistended. Bowel sounds are positive. MUSCULOSKELETAL: No cyanosis or clubbing. There is diffuse pitting throughout. GENITOURINARY: No Crystal. NEUROLOGIC: Grossly nonfocal. LABORATORY DATA: WBC 16.8 and trending upward, hemoglobin 9.5 and stable, platelets 88,000 and improving. Band count is dropping. Neutrophil count is roughly stable. Creatinine 6.90 and gently down trending with dialysis. BUN 111. Basic metabolic profile is otherwise unremarkable. Tracheal aspirate is growing Pseudomonas, serratia, and Staph aureus. These are pansensitive organisms and for clinical and fluoroquinolones worked just fine with them. ASSESSMENT: 1. Acute hypoxic respiratory failure. 2. Anaphylaxis with hypotension secondary to hymenoptera envenomation. 3. Acute kidney injury, slowly improving. 4. Volume overload. 5. Alcohol abuse. 6. Community-acquired pneumonia secondary to aspiration secondary to multiple species, DISCUSSION AND PLAN: The patient is sensitive to the fluoroquinolone. As such , vancomycin will be discontinued. Otherwise, supportive measures will be continued. During dialysis, we will pull off as much fluid as the patient tolerates. We will continue our supportive measures and minimize pressure. I will decrease his respiratory rate to 17 and his pressure support to 17 in order to turn a touch more work of breathing over the patient. Oxygen will be weaned away as tolerated. Critical care time: 30 minutes. MTDD
--- NOTE | 2018-01-27 22:46 | PRG ---
DATE OF SERVICE: 01/26/2018 SERVICE: Pulmonary Medicine. INTERVAL HISTORY: The patient is doing poorly overnight. His oxygen requirements are actually increase fairly dramatically. He is up 80% FiO2. His PEEP has been increased to 12. He tolerated dialysis just fine yesterday and he is back on once again this morning. He cannot provide me with any additional elements of the history. PHYSICAL EXAMINATION VITAL SIGNS: Afebrile. Pulse 74, blood pressure 130/57, respirations 40, saturation 91% on 80% FiO2 and a PEEP of 12. GENERAL: Patient is intubated and sedated. HEENT: Normocephalic, atraumatic. Sclerae white. Conjunctiva pink. Oral and nasal mucosa is moist without lesions. LUNGS: Decent air entry bilaterally. Rhonchi and crackles are both present. No prolonged expiratory phase or wheezing is appreciated. HEART: Normal rate, regular. ABDOMEN: Soft. Nontender, nondistended. Bowel sounds are positive. MUSCULOSKELETAL: No cyanosis or clubbing. Diffuse pitting throughout. GENITOURINARY: No Crystal. NEUROLOGIC: Grossly nonfocal. LABORATORY DATA: WBC 14.7, hemoglobin 9.5, and gently down trending. Platelets are roughly stable but gently trending upward to 68. INR 1.2. Creatinine 7.56, BUN 121, anion gap 21, bicarb 25. Chloride 92, sodium 133. Everything seems to be trending in the right direction with dialysis. Blood cultures x2 are negative. Respiratory culture is growing Pseudomonas in a different gram-negative wilian, but it is a pansensitive organism. IMAGING: Chest x-ray from last night demonstrates increasing bilateral alveolar infiltrates. Endotracheal tube remains in good position. There is an enteric catheter coursing below the level of the diaphragm. I do not appreciate significant effusions. ASSESSMENT 1. Acute hypoxic respiratory failure. 2. Acute respiratory distress syndrome versus pulmonary edema. 3. Anaphylaxis with hypotension secondary to Hymenoptera Envenomation. 4. Acute kidney injury. 5. Alcohol abuse. 6. Healthcare-associated pneumonia, being treated though I am more suspicious of this being an acute volume overload state. PLAN: We will continue our supportive care. We will change our strategy of mechanical ventilation over to provide him with lower pressures to prevent further injury of the lungs in the event that this is an ARDS type picture. My suspicion however is that we are dealing with overt pulmonary edema. I will provide him with a daily dose of Lasix. Once he has urine output from the Lasix , we will be able to back off of dialysis. Supportive measures will otherwise be continued. The patient remains critically ill but hopefully it will get volume off of them, we will see some of his lung injury improve. If it does not , he could go on to develop ARDS and that would be a very poor prognostic event. Critical care time: 30 minutes. KULWINDERD
--- NOTE | 2018-01-28 03:02 | PRG ---
DATE OF SERVICE: 01/26/2018 SUBJECTIVE: Mr. Pires is an 82-year-old black male, who was admitted for anaphylactic shock secon alina to bee sting and went to acute kidney injury. His renal function worsen and he became volume ov erloaded. For this reason, we initiated dialysis. He has 1-hour dialysis yesterday. I am currently dialyzing this patient and I am at the bedside supervising his dialysis. I am attempting around 2.5 to 3 liters of fluid removal as tolerated by the patient. OBJECTIVE: VITAL SIGNS: Blood pressure is currently 153/70, heart rate 70. GENERAL: Arousable following simple commands. Intubated on ventilator support. SKIN: Adequate turgor. HEENT: The patient has a pinkish conjunctivae. Anicteric sclerae. NECK: No neck mass. No carotid bruits. No JVD. CHEST: No deformities. LUNGS: Decreased breath sounds. HEART: Normal sinus rhythm. No murmurs, no gallops, no rubs. ABDOMEN: Globular, soft, nontender, no masses. EXTREMITIES: Positive for edema. IMAGING: Chest x-ray of 01/26/2018 - Interval worsening of patchy opacities in the lung sanchez - see n bilaterally. LABORATORY DATA: White count is 14.7, hemoglobin 9.5. Sodium 133, potassium 4.6, chloride 92, carbo n dioxide 25, BUN 121, creatinine 7.56, glucose 112, calcium 8.1. ASSESSMENT AND PLAN 1. Acute kidney injury - secondary to presumptive acute tubular necrosis versus acute interstitial n ephritis. Due to the worsening renal dysfunction and volume overload, hemodialysis has been initiate d. I am attempting to challenge this patient with fluid removal - attempt 3 liters if tolerated by t he patient. Continue supportive care. I plan to do another 3-hour hemodialysis in a.m. 2. Anaphylactic shock secondary to bee stings - currently on steroids. Currently intubated. Unable to be weaned off due to the volume overload. Chest x-ray has worsened. Overall prognosis remains guarded. I had a long discussion with the family and they wish to pursue an aggressive approach with this rm ent including dialysis.
[2018-01-28 04:09] LABS: Anion Gap 18 mmol/L (10-20); BUN (Urea Nitrogen) 80 mg/dL (8.4-25.7); Calc. Creatinine Clearance 13 mL/min (70-130); Calcium 8.3 mg/dL (7.8-10.44); Carbon Dioxide 24 mmol/L (23-31); Chloride 98 mmol/L (98-107); Estimated GFR-MDRD 10; Glucose 108 mg/dL (83-110); Sodium 136 mmol/L (136-145)
[2018-01-28 04:37] LABS: Band 7 % (5-11); Eosinophils 1 % (0-10); Hemoglobin 9.4 g/dL (14.0-18.0); Lymphocytes 17 % (21-51); MDiff Complete? YES; Mean Corpuscular HGB CONC 37.6 g/dL (32.0-36.0); Mean Corpuscular Hemoglobin 32.1 pg (27.0-31.0); Mean Corpuscular Volume 85.3 fl (80.0-94.0); Mean Platelet Volume 9.6 fL (7.4-10.4); Monocytes 8 % (0-10); Neutrophil 67 % (42-75); PLT Morphology Comment Appears Decreased; Platelet Count 119 thou/uL (130-400); RBC Distribution Width 14.6 % (11.5-14.5); Red Blood Cell (RBC) Count 2.92 mill/uL (4.70-6.10); White Blood Cell (WBC) Count 21.9 thou/uL (4.8-10.8)
[2018-01-28] MEDS: Propofol 1,000 MG/100 ML VIAL IV PRN ×4 (05:21→20:50)
[2018-01-28] MEDS: Heparin 5,000 UNITS/ML VIAL SC SCH ×2 (08:50→20:50)
[2018-01-28] MEDS: Famotidine 20 MG TAB PO SCH (08:51)
[2018-01-28] MEDS ORDERED: Cefepime 2 GM in Sodium Chloride 0.9% 100 ML IVPB SCH (09:45)
--- NOTE | 2018-01-28 10:52 | PRG ---
DATE OF SERVICE: 01/28/2018 SERVICE: Renal Medicine. SUBJECTIVE: Mr. Pires is an 82-year-old black male, who was admitted for anaphylactic shock secon alina to multiple bee stings. He was seen by the Renal Service for his acute kidney injury. Our pres umptive diagnosis is he may have an acute renal failure from ATN versus acute interstitial nephritis. Hemodialysis has been initiated due to volume overload and progressive ischemia. No acute events l ast night. OBJECTIVE: VITAL SIGNS: Blood pressure 125/50, heart rate 58, respiratory rate 16, O2 sat 95%. GENERAL EXAM: Awake, intubated on ventilator support. SKIN: Adequate turgor. HEENT: He has pinkish conjunctivae. Anicteric sclerae. NECK: No neck mass, no carotid bruits, no JVD. CHEST: No deformities. LUNGS: Decreased breath sounds. No wheezing. HEART: Normal sinus rhythm. No murmur, no gallops, no rubs. ABDOMEN: Globular, soft, nontender, no masses. EXTREMITIES: No edema. MEDICATIONS: 01/28/2018 was reviewed. LABORATORY DATA: Laboratories of 01/28/2018, white count 21.9, hemoglobin 9.4, sodium 136, potassium 4, chloride 98, carbon dioxide 24, BUN 80, creatinine 5.36, glucose 108, calcium 8.3. ASSESSMENT AND PLAN: 1. Acute kidney injury - secondary to presumed acute tubular necrosis/acute interstitial nephritis. Continue supportive care. Continue to dialytic intervention. I am at the bedside supervising his h emodialysis. Our plan is to do a 4-hour dialysis and place him on 3 times a week hemodialysis. 2. Acute anaphylactic shock/acute respiratory failure - supportive care, improving. Maxing out flui d removal with dialysis. Agree with current management.
[2018-01-28] MEDS ORDERED: Cefepime 2 GM, Syringe 2.5 ML in Sterile Water 10 ML SLOW IVP SCH (11:00)
--- NOTE | 2018-01-28 12:00 | PRG ---
DATE OF SERVICE: 01/28/2018 SERVICE: Pulmonary Medicine. INTERVAL HISTORY: The patient is doing okay from a respiratory standpoint. His oxygen requirements are improving slightly. He does not have any complaints of fevers, chills, nausea or vomiting. He is breathing comfortably. He is a little bit anxious on mechanical ventilation. He has been weaned off of the Precedex altogether and is on a little bit of propofol only. PHYSICAL EXAMINATION: VITAL SIGNS: Afebrile, pulse 65, blood pressure 111/49, respirations 16, saturation 95% on 60% FiO2 and PEEP of 8. Ins and outs are +1300 over the last 24 hours. Urine output is continuing to drop off and was 75 mL yesterday. HEENT: Normocephalic, atraumatic. Sclerae are white, conjunctivae pink. Oral mucosa is moist without lesions. LUNGS: Decent air entry bilaterally without prolonged expiratory phase or wheezing. HEART: Normal rate and regular. ABDOMEN: Soft, nontender, and nondistended. Bowel sounds are positive. MUSCULOSKELETAL: No cyanosis or clubbing. Pitting edema has improved dramatically. GENITOURINARY: Crystal catheter in place. NEUROLOGIC: Grossly nonfocal. LABORATORY DATA: WBC 21.9, hemoglobin 9.4, platelets 67,000 and gently up trending. Creatinine 5.36 and down trending, BUN 80. Basic metabolic profile is otherwise unremarkable. Tracheal aspirate is growing multiple species which are essentially all sensitive to fluoroquinolones and cefepime. PLAN: I am going convert the patient over to cefepime as his white blood cell count is starting to trend back upward. I am not convinced that dosing on the fluoroquinolone is currently adequate. We will continue to wean oxygen away as tolerated. I will do a chest x-ray and ABG in the morning. Hopefully, over the next 24-48 hours, the patient will be in a better position where we can consider extubation. Critical care time: 30 minutes. MTDD
[2018-01-29] MEDS: Propofol 1,000 MG/100 ML VIAL IV PRN ×5 (01:27→20:46)
[2018-01-29 05:36] LABS: Anion Gap 15 mmol/L (10-20); BUN (Urea Nitrogen) 59 mg/dL (8.4-25.7); Calc. Creatinine Clearance 16 mL/min (70-130); Calcium 8.2 mg/dL (7.8-10.44); Carbon Dioxide 26 mmol/L (23-31); Chloride 99 mmol/L (98-107); Estimated GFR-MDRD 14; Glucose 85 mg/dL (83-110); Potassium 4.1 mmol/L (3.5-5.1); Sodium 136 mmol/L (136-145)
[2018-01-29 05:59] LABS: Band 13 % (5-11); Eosinophils 1 % (0-10); Hemoglobin 9.1 g/dL (14.0-18.0); Lymphocytes 12 % (21-51); MDiff Complete? YES; Mean Corpuscular Hemoglobin 30.4 pg (27.0-31.0); Mean Corpuscular Volume 86.8 fl (80.0-94.0); Metamyelocyte 3 % (0-0); Monocytes 11 % (0-10); Myelocyte 4 % (0-0); Neutrophil 56 % (42-75); Platelet Count 179 thou/uL (130-400); RBC Distribution Width 14.5 % (11.5-14.5); Red Blood Cell (RBC) Count 2.99 mill/uL (4.70-6.10); White Blood Cell (WBC) Count 17.3 thou/uL (4.8-10.8)
[2018-01-29 08:06] LABS: Base Excess (BEa) 0.4 mEq/L (0 (+/-) 2.5); CO2 Tension 40.4 mmHg (35.0-45.0); Calcium, Ionized 1.1 mmol/L (1.12-1.30); Hematocrit-ABG 29.5 % (42.0-52.0); Hemoglobin (Hb) 9.5 g/dL (14.0-18.0); O2 Tension (PaO2) 71.9 mmHg (80.0-100.0); pH, Arterial 7.41 (7.35-7.45)
[2018-01-29 08:07] LABS: Puncture Site L.R.
--- NOTE | 2018-01-29 08:51 | RAD ---
PORTABLE CHEST: HISTORY: Dyspnea. CCU followup. COMPARISON: 01/25/18. FINDINGS: There are diffuse confluent bilateral alveolar infiltrates more extensive in the left lung but seen t hroughout the right upper and mid lung as cell. ET tube and NG tube remain in place. IMPRESSION: Persistent diffuse bilateral pulmonary infiltrate. POS: [facility]
--- NOTE | 2018-01-29 09:15 | PRG ---
DATE OF SERVICE: 01/29/2018 RENAL MEDICINE SUBJECTIVE: Mr. Pires is an 82-year-old black male who was admitted for anaphylactic shock, multi organ dysfunction, and now being followed by the Renal Service for his acute kidney injury. A presum ptive ATN is made with this patient. He continues to be placed on regular dialysis regimen. We atte mpted more fluid removal yesterday, but he did not tolerate this due to the low blood pressure. My p yury is again to reschedule him for hemodialysis tomorrow. He is still intubated. No acute events noted last night. Chest x-ray shows persistent bilateral infiltrates. PHYSICAL EXAMINATION: VITAL SIGNS: Blood pressure is 128/59, heart rate 62, respiratory rate 21, pulse ox 91%. GENERAL: Patient is arousable, intubated and ventilator support. SKIN: Adequate turgor. HEENT: The patient has slightly pale conjunctivae, anicteric sclerae. NECK: No neck mass, no carotid bruits, no JVD. CHEST: No deformities. LUNGS: Decreased breath sounds. HEART: Normal sinus rhythm. No murmurs, no gallops, no rubs. ABDOMEN: Globular, soft, nontender, no masses. EXTREMITIES: No edema. MEDICATIONS: Medications of 01/29/2018 was reviewed. LABORATORY DATA: Laboratories of 01/29/2018; white count 17.3, hemoglobin 9.1. Sodium 136, potassiu m 4.1, chloride 99, carbon dioxide 26, BUN 59, creatinine 4.22, glucose 85, and calcium 8.2. ASSESSMENT AND PLAN: 1. Acute kidney injury - on presumptive basis of ischemic acute tubular necrosis. Continue current hemodialysis regimen. Attempt fluid removal as tolerated by the patient. 2. Acute respiratory failure, Pulmonary following. Chest x-ray still is unchanged showing diffuse p ulmonary infiltrates. 3. Anaphylactic shock - continue supportive care. The patient is currently on steroids. Overall, prognosis remains guarded. No evidence of renal recovery.
[2018-01-29] MEDS ORDERED: Cefepime 1 GM in Sodium Chloride 0.9% 100 ML IVPB SCH (09:45)
[2018-01-29] MEDS: Heparin 5,000 UNITS/ML VIAL SC SCH ×2 (10:49→20:46)
[2018-01-29] MEDS: Famotidine 20 MG TAB PO SCH (10:50)
[2018-01-29] MEDS: Cefepime 1 GM, Admixture Fee 1 EACH in Sterile Water 10 ML SLOW IVP SCH (13:02)
--- NOTE | 2018-01-29 18:22 | PRG ---
DATE OF SERVICE: 01/29/2018 SERVICE: Pulmonary Medicine. INTERVAL HISTORY: The patient is doing fine from a cardiovascular and respiratory standpoint. His o xygen requirements have improved a little bit overnight. He cannot provide any additional elements o f the history. There were no events reported. PHYSICAL EXAMINATION: VITAL SIGNS: Afebrile, pulse 61, blood pressure 100/38, respirations 19, saturation 96% on 60% FiO2 and a PEEP of 8. HEENT: Normocephalic, atraumatic. Sclerae are white, conjunctivae pink. Oral mucosa is moist witho ut lesions. LUNGS: Decent air entry. There is no prolonged expiratory phase. Rhonchi and crackles are present. No wheezing. HEART: Normal rate, regular. ABDOMEN: Soft, nontender, nondistended. Bowel sounds are positive. MUSCULOSKELETAL: No cyanosis or clubbing. There is no pitting in the bilateral lower extremities. NEUROLOGIC: Grossly nonfocal. LABORATORY DATA: WBC 17.3 and down trending, hemoglobin 9.1, platelets 179,000 and improving. Band count is up to 13%, but the neutrophil count is settling down. PH 7.41, pCO2 of 40, pO2 of 72. Crea tinine 4.22. Basic metabolic profile is otherwise unremarkable. Tracheal aspirate is growing Pseudo monas aeruginosa, serratia, and Staph aureus, which is sensitive to cefepime. Blood cultures x2 giuliana in unremarkable. IMAGING: Chest x-ray demonstrates diffuse bilateral pulmonary infiltrates are present. Endotracheal tube remains in decent position roughly 3-4 cm above the eliseo. There is an enteric catheter cours ing midline below the level of the diaphragm and out of the field of view. There may be a left-sided pleural effusion present. ASSESSMENT: 1. Acute hypoxic respiratory failure. 2. Anaphylaxis with hypotension secondary to hymenoptera envenomation. 3. Acute kidney injury, currently requiring hemodialysis. 4. Volume overload. 5. Community acquired pneumonia secondary to serratia, Pseudomonas, and MSSA. PLAN: We will continue support on the ventilator. I will back off of our oxygen just a touch. We w ill also decrease support ever so slightly. Hopefully, once the patient's oxygen requirements improv e, he can be considered for transition off of mechanical ventilation. Bedside ultrasound and thorace ntesis will be considered tomorrow morning to see whether or not there are any significant fluids kayode t could facilitate us weaning him from the ventilator. CRITICAL CARE TIME: 30 minutes.
[2018-01-30] MEDS: Propofol 1,000 MG/100 ML VIAL IV PRN ×7 (01:03→23:46)
[2018-01-30 04:59] LABS: Anion Gap 19 mmol/L (10-20); BUN (Urea Nitrogen) 89 mg/dL (8.4-25.7); Calc. Creatinine Clearance 11 mL/min (70-130); Calcium 8.3 mg/dL (7.8-10.44); Carbon Dioxide 23 mmol/L (23-31); Chloride 97 mmol/L (98-107); Estimated GFR-MDRD 9; Glucose 100 mg/dL (83-110); Sodium 135 mmol/L (136-145)
[2018-01-30 05:21] LABS: Band 13 % (5-11); Eosinophils 1 % (0-10); Hemoglobin 8.9 g/dL (14.0-18.0); Lymphocytes 19 % (21-51); MDiff Complete? YES; Mean Corpuscular HGB CONC 36.1 g/dL (32.0-36.0); Mean Corpuscular Hemoglobin 31.2 pg (27.0-31.0); Mean Corpuscular Volume 86.5 fl (80.0-94.0); Mean Platelet Volume 8.4 fL (7.4-10.4); Monocytes 8 % (0-10); Neutrophil 59 % (42-75); PLT Morphology Comment Appears Adequate; Platelet Count 238 thou/uL (130-400); RBC Distribution Width 14.6 % (11.5-14.5); Red Blood Cell (RBC) Count 2.87 mill/uL (4.70-6.10); White Blood Cell (WBC) Count 14.4 thou/uL (4.8-10.8)
[2018-01-30] MEDS: Famotidine 20 MG TAB PO SCH (08:42)
[2018-01-30] MEDS: Heparin 5,000 UNITS/ML VIAL SC SCH ×2 (08:42→19:42)
--- NOTE | 2018-01-30 09:51 | PRG ---
DATE OF SERVICE: 01/30/2018 SERVICE: Pulmonary Medicine. INTERVAL HISTORY: The patient is doing fine from a respiratory standpoint. He is tolerating some sl ightly lower pressure settings on the mechanical ventilator. He is having a hard time weaning oxygen ; however. There were no overnight events that were significant. PHYSICAL EXAMINATION: VITAL SIGNS: Afebrile, pulse 61, blood pressure 102/43, respirations 22, saturation 90% on 47% FIO2, PEEP of 6. HEENT: Normocephalic, atraumatic. Sclerae are white, conjunctivae pink. Oral mucosa is moist witho ut lesions. LUNGS: Decent air entry. Dependent crackles are minimal. Otherwise, he has really good air entry a nd no significantly prolonged expiratory phase or wheezing. HEART: Normal rate, regular. ABDOMEN: Soft, nontender, and nondistended. Bowel sounds are positive. MUSCULOSKELETAL: No cyanosis or clubbing. There is no pitting in the bilateral lower extremities. NEUROLOGIC: Grossly nonfocal. LABORATORY DATA: WBC 14.4, hemoglobin 8.9 and roughly stable, platelets 238,000 and up trending beau tifully. Band count is stable at 13%. INR 1.2. A pH 7.41, pCO2 40.4, pO2 71. Creatinine 5.93, BUN 89. Basic metabolic profile is otherwise unremarkable. C. diff antigen and toxin are unremarkable. Pseudomonas aeruginosa, Staph aureus and serratia are all present in the sputum. They are also sen sitive to cefepime. ASSESSMENT: 1. Acute hypoxic respiratory failure. 2. Anaphylaxis with hypotension, secondary to hymenoptera envenomation. 3. Delirium tremens, resolved. 4. Acute kidney injury, currently requiring hemodialysis. 5. Volume overload, mild. 6. Community-acquired pneumonia secondary to serratia, Pseudomonas, and MSSA from likely aspiration event. PLAN: We will continue to wean the ventilator as tolerated. The patient has now been intubated for 10 days. If we cannot get him on a spontaneous breathing trial over the next 2-3 days, tracheostomy may need to be considered. We will address that likely on Saturday. Pulmonary or Critical Care will c ontinue to follow along. We will continue our antibiotics and other supportive measures including tu be feeds. CRITICAL CARE TIME: 30 minutes.
[2018-01-30] MEDS ORDERED: Heparin 1,000 UNITS/ML VIAL ONE (11:11)
--- NOTE | 2018-01-30 13:01 | PRG ---
DATE OF SERVICE: 01/30/2018 RENAL MEDICINE SUBJECTIVE: Mr. Pires is an 82-year-old black male who was admitted for anaphylactic shock with multiorgan dysfunction and being followed by the Renal Service for his acute kidney injury secondary to acute tubular necrosis. He is undergoing hemodialysis in the last several days. I am currently at the bedside supervising his dialysis. We will attempt about 3 liters of fluid removal as tolerated by this patient. Chest x-ray with bilateral pulmonary infiltrates. No acute events last night. PHYSICAL EXAMINATION: VITAL SIGNS: Blood pressure is 123/60, heart rate 59, pulse ox is 90%. GENERAL: Awake, intubated on ventilator support. SKIN: Adequate turgor. HEENT: Pale conjunctivae, anicteric sclerae. CHEST: No deformities. LUNGS: Decreased breath sounds. HEART: Normal sinus rhythm. No murmurs, no gallops, no rubs. ABDOMEN: Globular, soft, nontender, no masses. EXTREMITIES: Positive trace edema. MEDICATIONS: Medications of 01/30/2018 reviewed. LABORATORY DATA: Laboratories of 01/30/2018, white count 14.4, hemoglobin 14.4 , sodium 135, potassium 4, chloride 97, carbon dioxide 50, BUN 69, creatinine is 5.93, GFR 9 mL per minute, calcium 8.3. ASSESSMENT AND PLAN: 1. Acute kidney injury secondary to most likely acute tubular necrosis. No evidence of renal recovery. Minimal urine output. Continue supportive care. Continue current dialysis regimen of Saturday, , and Saturday. We will attempt 3 liter fluid removal if the patient will tolerate this. 2. Acute respiratory failure - Unable to be weaned off at the present time; max out fluid removal with hemodialysis if tolerated. Pulmonary is following. Currently, on empiric IV antibiotics. 3. ? of possible thoracentesis. Overall prognosis remains guarded. MTDD
[2018-01-30] MEDS: Cefepime 1 GM, Admixture Fee 1 EACH in Sterile Water 10 ML SLOW IVP SCH (13:15)
[2018-01-31] MEDS: Propofol 1,000 MG/100 ML VIAL IV PRN (03:58)
[2018-01-31 05:30] LABS: Anion Gap 14 mmol/L (10-20); BUN (Urea Nitrogen) 57 mg/dL (8.4-25.7); Calc. Creatinine Clearance 15 mL/min (70-130); Calcium 8.2 mg/dL (7.8-10.44); Carbon Dioxide 27 mmol/L (23-31); Chloride 97 mmol/L (98-107); Estimated GFR-MDRD 13; Glucose 88 mg/dL (83-110); Potassium 3.9 mmol/L (3.5-5.1); Sodium 134 mmol/L (136-145)
[2018-01-31 05:59] LABS: Band 5 % (5-11); Hemoglobin 9.4 g/dL (14.0-18.0); Lymphocytes 21 % (21-51); MDiff Complete? YES; Mean Corpuscular HGB CONC 35.5 g/dL (32.0-36.0); Mean Corpuscular Hemoglobin 31.3 pg (27.0-31.0); Mean Corpuscular Volume 88.1 fl (80.0-94.0); Mean Platelet Volume 8.4 fL (7.4-10.4); Metamyelocyte 3 % (0-0); Monocytes 11 % (0-10); Neutrophil 55 % (42-75); PLT Morphology Comment Appears Adequate; Platelet Count 286 thou/uL (130-400); RBC Distribution Width 14.5 % (11.5-14.5); RBC Morphology Normal; Reactive Lymphocytes 5 % (0-10); White Blood Cell (WBC) Count 13.2 thou/uL (4.8-10.8)
[2018-01-31] MEDS: Famotidine 20 MG TAB PO SCH (09:28)
[2018-01-31] MEDS: Heparin 5,000 UNITS/ML VIAL SC SCH ×2 (09:30→22:35)
--- NOTE | 2018-01-31 09:56 | PRG ---
DATE OF SERVICE: 01/31/2018 SUBJECTIVE: Mr. Pires is an 82-year-old black male being followed by the Renal Service for acute kidney injury secondary to presumed acute tubular necrosis. He was initially admitted for anaphylac tic shock with multiorgan dysfunction. He was placed on ventilation and was intubated. This morning . The plan is to extubate him. He also has been undergoing 3 times a week hemodialysis with fluid r emoval as tolerated. No acute events this morning. PHYSICAL EXAMINATION: VITAL SIGNS: Blood pressure is 114/52, heart rate 52, respiratory rate 22, pulse ox 96%. GENERAL: Noted to be awake, alert, comfortable, not in overt distress. SKIN: Adequate turgor. HEENT: Pinkish conjunctivae, anicteric sclerae. NECK: No neck mass, no carotid bruits, no JVD. Still intubated. LUNGS: Decreased breath sounds. HEART: Normal sinus rhythm. No murmur, no gallops or rubs. ABDOMEN: Globular, soft, nontender. No masses. EXTREMITIES: No edema, no deformities. MEDICATIONS: 01/31/2018 - Reviewed. LABORATORY: 01/31/2018 - Shows a white count of 13.2, hemoglobin 9.4, sodium 134, potassium 3.9, ch loride 97, carbon dioxide 27, BUN 57, creatinine 4.42, glucose 88, calcium 8.2. ASSESSMENT AND PLAN: 1. Acute kidney injury - secondary to ischemic acute tubular necrosis. No evidence of renal recover y, continuing 3 times a week hemodialysis. No indication for any dialytic intervention today. 2. Acute respiratory failure, pulmonary following. The patient is currently being weaned off from h is ventilator. The plan is to extubate him this morning. 3. Anemia, p.r.n. blood transfusion. Overall, prognosis remains guarded. I agree with current management.
--- NOTE | 2018-01-31 10:22 | PRG ---
DATE OF SERVICE: 01/31/2018 SERVICE: Pulmonary Medicine. INTERVAL HISTORY: The patient is doing fine from a respiratory standpoint. He is on a CPAP trial th is morning. He is on a pressure support of 7 and FiO2 of 37%. With this, saturations are roughly 90 %. He is a touch tachypneic, but is pulling decent volumes. He is agitated because there is tube is in his throat. Otherwise, there were no events overnight. PHYSICAL EXAMINATION: VITAL SIGNS: Afebrile, pulse 51, blood pressure 113/52, respirations 22, saturation 96% on 37% FiO2 and a PEEP of 5. GENERAL: The patient is awake and alert, in no apparent distress. LUNGS: Decent air entry with rhonchi and crackles both present. No prolonged expiratory phase or wh eezing is appreciated. HEART: Normal rate and regular. ABDOMEN: Soft, nontender, and nondistended. Bowel sounds are positive. MUSCULOSKELETAL: No cyanosis or clubbing. He has no pitting in the lower extremities. He has got t race to 1+ pitting at the sacrum. GENITOURINARY: Crystal catheter in place. NEUROLOGIC: Grossly nonfocal. LABORATORY DATA: WBC 13.2, hemoglobin 9.4, platelets 286,000. Band count has finally dropped to 5%. INR 1.2. Creatinine 4.42, BUN 57, basic metabolic profile is otherwise unremarkable. ASSESSMENT: 1. Acute hypoxic respiratory failure. 2. Anaphylaxis with hypotension, secondary to hymenoptera envenomation, resolved. 3. Delirium tremens, resolved. 4. Acute kidney injury, currently on hemodialysis. 5. Community-acquired pneumonia secondary to serratia, Pseudomonas and MSSA from likely aspiration e vent. DISCUSSION AND PLAN: We will have a complete 30 minute spontaneous breathing trial. If he meets cri teria, extubation will be considered. We will work on mobilizing him and get physical therapy and sp eech pathology involve to make certain that his strength is maintained and that can swallow. He will remain in the ICU for the next 24 hours. CRITICAL CARE TIME: 30 minutes.
[2018-01-31] MEDS: Cefepime 1 GM, Admixture Fee 1 EACH in Sterile Water 10 ML SLOW IVP SCH (13:05)
[2018-01-31] MEDS ORDERED: Haloperidol Lactate 5 MG/ML VIAL IM PRN (15:29)
[2018-01-31] MEDS: Ondansetron HCl/PF 4 MG/2 ML Vial IVP PRN (19:13)
[2018-02-01] MEDS: Heparin 5,000 UNITS/ML VIAL SC SCH ×2 (09:41→21:44)
--- NOTE | 2018-02-01 09:47 | PRG ---
DATE OF SERVICE: 02/01/2018 SUBJECTIVE: An 82-year-old gentleman, who is being dialyzed at this time. OBJECTIVE: VITAL SIGNS: Blood pressure 151/60, sats are 98%, pulse 80 , respiration rate 18. GENERAL: He is moaning and groaning, but denies any difficulty breathing. CHEST: No wheezing or crackles. CARDIAC: Normal S1, S2, no gallops. ABDOMEN: Soft, no masses. IMPRESSION: 1. Acute renal failure, being dialyzed. 2. Respiratory failure,S\P_ ventilation. 3. Angioedema secondary to bee sting anaphylaxis. PLAN: Continue supportive care, antibiotics, neb treatments, dialysis. We will follow while in the ICU. AKILA
[2018-02-01] MEDS ORDERED: Heparin 1,000 UNITS/ML VIAL ONE (11:11)
[2018-02-01] MEDS: Cefepime 1 GM, Admixture Fee 1 EACH in Sterile Water 10 ML SLOW IVP SCH (12:41)
--- NOTE | 2018-02-01 13:28 | HP ---
HISTORY OF PRESENT ILLNESS: Mr. Pires is an 82-year-old black male who was admitted for acute chris phylactic shock with multiorgan dysfunction. We are following him up for his acute kidney injury sec ondary to presumed acute tubular necrosis. He has current maintenance hemodialysis. I am currently dialyzing the patient and I am at the bedside supervising his dialysis. I am attempting between 2 an d 3 liters of fluid removal. Please note he was extubated yesterday. No other complaints. PHYSICAL EXAMINATION: VITAL SIGNS: Blood pressure is 123/50, heart rate 70, respiratory rate 26, pulse ox 97%. GENERAL: Noted to be awake, comfortable, not in overt distress. SKIN: Adequate turgor. HEENT: He has pinkish conjunctivae, anicteric sclerae. NECK: No neck mass, no carotid bruits, no JVD. CHEST: No deformities. LUNGS: Decreased breath sounds. HEART: Normal sinus rhythm. No murmur, no gallops, no rubs. ABDOMEN: Globular, soft, nontender, no masses. EXTREMITIES: No edema. MEDICATIONS: Medications of 02/01/2018 was reviewed. LABORATORY DATA: Laboratories of 01/31/2018, sodium 134, potassium 3.9, chloride 97, carbon dioxide 27, BUN 57, creatinine 4.42, glucose 88, calcium 8.2. ASSESSMENT AND PLAN: 1. Acute kidney injury -- secondary to possible ischemic acute tubular necrosis. Currently, on main tenance hemodialysis. I am continuing the 3 times a week hemodialysis. So far, I reviewed his labs and urine output. There is no evidence of renal recovery. Continue supportive care. 2. Acute respiratory failure -- patient extubated, managed by Pulmonary Medicine. 3. Status post anaphylactic shock -- much improved. Patient is stabilizing. We will consider reche cking base met and CBC in a.m.
[2018-02-02 04:14] LABS: Anion Gap 14 mmol/L (10-20); BUN (Urea Nitrogen) 48 mg/dL (8.4-25.7); Calc. Creatinine Clearance 14 mL/min (70-130); Carbon Dioxide 26 mmol/L (23-31); Chloride 98 mmol/L (98-107); Estimated GFR-MDRD 12; Glucose 78 mg/dL (83-110); Potassium 4.1 mmol/L (3.5-5.1); Sodium 134 mmol/L (136-145)
[2018-02-02 04:43] LABS: Eosinophils 2 % (0-10); Hemoglobin 9.8 g/dL (14.0-18.0); Lymphocytes 16 % (21-51); MDiff Complete? YES; Mean Corpuscular HGB CONC 35.5 g/dL (32.0-36.0); Mean Corpuscular Hemoglobin 30.8 pg (27.0-31.0); Mean Corpuscular Volume 86.8 fl (80.0-94.0); Mean Platelet Volume 7.1 fL (7.4-10.4); Monocytes 12 % (0-10); Neutrophil 70 % (42-75); PLT Morphology Comment Appears Adequate; Platelet Count 350 thou/uL (130-400); RBC Distribution Width 14.2 % (11.5-14.5); RBC Morphology Normal; Red Blood Cell (RBC) Count 3.17 mill/uL (4.70-6.10); White Blood Cell (WBC) Count 12.4 thou/uL (4.8-10.8)
[2018-02-02] MEDS: Heparin 5,000 UNITS/ML VIAL SC SCH ×2 (08:33→22:43)
--- NOTE | 2018-02-02 08:58 | PRG ---
DATE OF SERVICE: 02/02/2018 RENAL MEDICINE HISTORY OF PRESENT ILLNESS: Mr. Pires is an 82-year-old white male who was admitted for anaphylac tic shock and developed multiorgan dysfunction which included acute kidney injury secondary to presum ed acute tubular necrosis. We have placed him on dialysis for supportive care. He has been receivin g dialysis 3 times a week at the present time. We were able to remove several liters of fluid yester day. He denies any new complaints. No chest pain or any worsening shortness of breath. Please note , he is currently extubated. OBJECTIVE: VITAL SIGNS: Blood pressure is 142/64, heart rate 75, respiratory rate 21, pulse ox 98%. GENERAL: Awake, supine, comfortable, not in distress. SKIN: Adequate turgor. HEENT: Pinkish conjunctivae, anicteric sclerae. NECK: No neck mass, no carotid bruits, no JVD. CHEST: No deformities. LUNGS: Clear. Decreased breath sounds. No wheezing, no crackles. HEART: Normal sinus rhythm. No murmur, no gallops, no rubs. ABDOMEN: Globular, soft, nontender, no masses. EXTREMITIES: No edema. MEDICATIONS: Of 02/02/2018 was reviewed. LABORATORY DATA: Of 02/02/2018, white count 12.4, hemoglobin 9.8. Sodium 134, potassium 4.1, chlori de 98, carbon dioxide 26, BUN 48, creatinine 4.63, glucose 78, calcium 8.0. ASSESSMENT AND PLAN: 1. Acute kidney injury, no evidence of renal recovery, continuing 3 times a week hemodialysis. Next dialysis will be this coming Saturday. Fluid removal only as tolerated. We will recheck base met in a.m. 2. Anaphylactic shock, resolved. Clinically, more hemodynamically stable. 3. Acute respiratory failure, resolved. Patient is now extubated.
--- NOTE | 2018-02-02 12:17 | PRG ---
DATE OF SERVICE: 02/02/2018 SUBJECTIVE: This morning, he is awake and responsive. He is being fed. He is still slightly enceph alopathic. OBJECTIVE: VITAL SIGNS: Temperature 98, blood pressure 147/66, pulse 77, respirations 18. CHEST: Anterior rhonchi. CARDIAC: Normal S1 and S2, no gallops. ABDOMEN: Soft, no masses. LABORATORY DATA: White count 12,000, H and H is 9 and 27, platelet count normal. Creatinine 4.6. IMPRESSION: 1. Chronic renal failure. 2. Status post facial edema secondary to bee sting. 3. Respiratory failure. PLAN: Another 24 hours in the ICU. Thereafter, hopefully, he can be transferred out. Aggressive PT , supportive care.
[2018-02-02] MEDS: Cefepime 1 GM, Admixture Fee 1 EACH in Sterile Water 10 ML SLOW IVP SCH (12:50)
[2018-02-03 06:26] LABS: Band 1 % (5-11); Eosinophils 3 % (0-10); Hemoglobin 9.9 g/dL (14.0-18.0); Lymphocytes 19 % (21-51); MDiff Complete? YES; Mean Corpuscular HGB CONC 34.9 g/dL (32.0-36.0); Mean Corpuscular Hemoglobin 30.5 pg (27.0-31.0); Mean Corpuscular Volume 87.3 fl (80.0-94.0); Mean Platelet Volume 6.8 fL (7.4-10.4); Metamyelocyte 2 % (0-0); Monocytes 10 % (0-10); Neutrophil 64 % (42-75); PLT Morphology Comment Appears Adequate; Platelet Count 376 thou/uL (130-400); RBC Distribution Width 14.5 % (11.5-14.5); Red Blood Cell (RBC) Count 3.23 mill/uL (4.70-6.10); White Blood Cell (WBC) Count 13.7 thou/uL (4.8-10.8)
[2018-02-03 06:47] LABS: Anion Gap 19 mmol/L (10-20); BUN (Urea Nitrogen) 71 mg/dL (8.4-25.7); Calc. Creatinine Clearance 9 mL/min (70-130); Calcium 8.3 mg/dL (7.8-10.44); Carbon Dioxide 24 mmol/L (23-31); Chloride 97 mmol/L (98-107); Estimated GFR-MDRD 7; Glucose 84 mg/dL (83-110); Potassium 4.2 mmol/L (3.5-5.1); Sodium 136 mmol/L (136-145)
[2018-02-03] MEDS: Heparin 5,000 UNITS/ML VIAL SC SCH ×2 (08:23→21:52)
[2018-02-03] MEDS: Ondansetron HCl/PF 4 MG/2 ML Vial IVP PRN (08:23)
--- NOTE | 2018-02-03 10:04 | PRG ---
DATE OF SERVICE: 02/03/2018 INTERVAL HISTORY: The patient is doing fine from a respiratory standpoint. He is breathing comforta gerard. He has no chest pain or shortness of breath. His speech is garbled still. He has been cleared to swallow. Otherwise, there has been no interval change to his condition. He remains weak, but th is is improving a little bit. PHYSICAL EXAMINATION: VITAL SIGNS: Afebrile, pulse 80, blood pressure 145/63, respirations 19, saturation 98% on 2 liters nasal cannula. GENERAL: The patient is awake, alert, in no apparent distress. LUNGS: Excellent air entry without prolonged expiratory phase, wheezing, rhonchi or crackles. HEART: Normal rate, regular. ABDOMEN: Soft, nontender, nondistended. Bowel sounds are positive. MUSCULOSKELETAL: No cyanosis or clubbing. There is trace pitting in the bilateral lower extremities . NEUROLOGIC: Grossly nonfocal. LABORATORY DATA: WBC 13.7, hemoglobin 9.9, platelets 376,000. Band count remains low. Creatinine 7 .25, BUN 71. Basic metabolic profile is otherwise unremarkable. C. diff antigen and toxin is negati ve. Pseudomonas, serratia, and Staph aureus are all growing in the tracheal aspirate which are sensi tive. Blood cultures x2 are unremarkable. ASSESSMENT: 1. Acute hypoxic respiratory failure, improving. 2. Anaphylaxis with hypotension, secondary to hymenoptera envenomation, resolved. 3. Delirium tremens, resolved. 4. Acute kidney injury, currently requiring hemodialysis. 5. Community-acquired pneumonia secondary to serratia, Pseudomonas and methicillin-susceptible Staph ylococcus aureus from a likely aspiration event. 6. Critical care weakness. DISCUSSION AND PLAN: The patient will continue working with physical therapy on a daily basis. We w ill need to look into skilled options for him in the outpatient setting in order to transition him ho me eventually. From my perspective, he can be transitioned to the intermediate care unit. Pulmonary Critical Care will continue to follow.
[2018-02-03] MEDS: Cefepime 1 GM, Admixture Fee 1 EACH in Sterile Water 10 ML SLOW IVP SCH (12:02)
--- NOTE | 2018-02-04 08:41 | PRG ---
DATE OF SERVICE: 02/04/2018 SUBJECTIVE: Mr. Pires is an 82-year-old black male who was seen by the Renal Service for his acut e kidney injury - secondary to presumed acute tubular necrosis. He was initially admitted for anaphy lactic shock secondary to multiple bee stings. This morning he is having some diarrhea. He is being transferred out of the ICU. He has also low grade fever. The patient denies any chest pain, shortness of breath. PHYSICAL EXAMINATION: VITAL SIGNS: Blood pressure is noted at 92/58 to as high as 120/53, heart rate 98, respiratory rate 20, temperature 99, pulse ox 97%. GENERAL: Noted to be awake, alert, comfortable, not in distress. SKIN: Adequate turgor. HEENT: He has been slightly pale conjunctivae, anicteric sclerae. NECK: No neck mass, no carotid bruits, no JVD. CHEST: No deformities. LUNGS: Clear breath sounds. No wheezing, no crackles. HEART: Normal sinus rhythm. No murmur, no gallops or rubs. ABDOMEN: Globular, soft, nontender, no masses. EXTREMITIES: No edema, no deformities. MEDICATIONS: 02/04/2018 - Reviewed. LABORATORY: 02/03/2018 - Sodium 136, potassium 4.2, chloride 97, carbon dioxide 24, BUN 71, creatini ne 7.25. White count 13.7, hemoglobin 9.9. ASSESSMENT AND PLAN: 1. Diarrhea. Will check stools for C. diff. Lomotil 1 tab q.6h. p.r.n. 2. Low-grade fever - currently on empiric IV antibiotics. 3. Acute kidney injury secondary to a presumed acute tubular necrosis. No evidence of renal recover y, continuing 3 times a week hemodialysis with this patient. Fluid removal only as tolerated. Overall, prognosis remains guarded. ADDENDUM: We will consult Surgery for placement of a cuffed hemodialysis catheter. I think he will have a prolonged acute tubular necrosis. Recheck base met and CBC in a.m.
[2018-02-04] MEDS ORDERED: Amlodipine 10 MG TAB PO SCH (09:00)
[2018-02-04] MEDS ORDERED: Diphenoxylate HCl/Atropine Tablet PO PRN (09:36)
[2018-02-04] MEDS ORDERED: Sodium Chloride 0.9% 500 ML IV SCH (13:15)
[2018-02-04] MEDS: Heparin 5,000 UNITS/ML VIAL SC SCH ×2 (13:15→20:39)
[2018-02-04] MEDS: Cefepime 1 GM, Admixture Fee 1 EACH in Sterile Water 10 ML SLOW IVP SCH (14:28)
--- NOTE | 2018-02-04 14:39 | PRG ---
DATE OF SERVICE: 02/04/2018 SERVICE: Pulmonary Medicine. INTERVAL HISTORY: The patient was starting to have a little bit of diarrhea last night. His femoral line has been in place for a long period of time. The diarrhea had got actually under the skin. He denies any current chest pain, nausea or vomiting. He did not have any fevers or chills. He is on dialysis currently. They are working on taking some fluid off him. PHYSICAL EXAMINATION: VITAL SIGNS: Afebrile with a T-max of 99.0, pulse 98, blood pressure 92/50, respirations 20, saturation 97% on room air. GENERAL: The patient is awake, alert, in no apparent distress. LUNGS: Decent air entry. No prolonged expiratory phase or wheezing is appreciated. HEART: Normal rate and regular. ABDOMEN: Soft, nontender, nondistended. Bowel sounds are positive. MUSCULOSKELETAL: No cyanosis or clubbing. There is skin tenting throughout. GENITOURINARY: No Crystal. NEUROLOGIC: Grossly nonfocal. LABORATORY DATA: WBC 13.7, hemoglobin 9.9, platelets 376,000. Neutrophils are 64% and only 1% of bands. Respiratory cultures are growing Pseudomonas, Serratia and Staph aureus. C. diff antigen and toxin is negative. Blood cultures x2 are unremarkable. ASSESSMENT: 1. Acute hypoxic respiratory failure, resolved. 2. Anaphylaxis with hypertension, secondary to hymenoptera envenomation, resolved. 3. Delirium tremens, resolved. 4. Acute kidney injury, requiring hemodialysis. 5. Dehydration, moderate. 6. Community acquired pneumonia secondary to Serratia, Pseudomonas and methicillin susceptible Staphylococcus aureus, from a likely aspiration event. 7. Critical care weakness. PLAN: I will give him a half a liter of normal saline. We will start up half NS at 75 mL an hour for the next 24 hours. At this point, he is quite volume depleted. As such, we will need to be careful about getting him too dry with dialysis. I will repeat laboratories tomorrow morning. Antibiotics can be interrupted. MTDD
[2018-02-04 19:19] LABS: Anion Gap 15 mmol/L (10-20); BUN (Urea Nitrogen) 53 mg/dL (8.4-25.7); Calc. Creatinine Clearance 11 mL/min (70-130); Calcium 7.6 mg/dL (7.8-10.44); Carbon Dioxide 25 mmol/L (23-31); Chloride 99 mmol/L (98-107); Estimated GFR-MDRD 9; Glucose 78 mg/dL (83-110); Potassium 4.2 mmol/L (3.5-5.1); Sodium 135 mmol/L (136-145)
[2018-02-04 19:33] LABS: Band 6 % (5-11); Lymphocytes 11 % (21-51); MDiff Complete? YES; Mean Corpuscular HGB CONC 34.7 g/dL (32.0-36.0); Mean Corpuscular Hemoglobin 30.6 pg (27.0-31.0); Mean Corpuscular Volume 88.1 fl (80.0-94.0); Mean Platelet Volume 6.5 fL (7.4-10.4); Monocytes 15 % (0-10); Neutrophil 67 % (42-75); PLT Morphology Comment Appears Adequate; Platelet Count 291 thou/uL (130-400); Polychromasia SLIGHT = 2-3 cells (100X) (0-2/hpf); RBC Distribution Width 14.8 % (11.5-14.5); Red Blood Cell (RBC) Count 2.94 mill/uL (4.70-6.10)
[2018-02-04] MEDS: Sodium Chloride 0.45% 1,000 ML IV SCH (20:41)
[2018-02-05 05:52] LABS: Band 5 % (5-11); Eosinophils 1 % (0-10); Hemoglobin 8.3 g/dL (14.0-18.0); Lymphocytes 16 % (21-51); MDiff Complete? YES; Mean Corpuscular HGB CONC 34.5 g/dL (32.0-36.0); Mean Corpuscular Hemoglobin 30.6 pg (27.0-31.0); Mean Corpuscular Volume 88.5 fl (80.0-94.0); Mean Platelet Volume 6.8 fL (7.4-10.4); Metamyelocyte 2 % (0-0); Monocytes 19 % (0-10); Neutrophil 55 % (42-75); PLT Morphology Comment Appears Adequate; Platelet Count 308 thou/uL (130-400); RBC Distribution Width 14.7 % (11.5-14.5); Red Blood Cell (RBC) Count 2.71 mill/uL (4.70-6.10); White Blood Cell (WBC) Count 10.1 thou/uL (4.8-10.8)
[2018-02-05 05:54] LABS: Anion Gap 17 mmol/L (10-20); BUN (Urea Nitrogen) 61 mg/dL (8.4-25.7); Calc. Creatinine Clearance 9 mL/min (70-130); Calcium 7.8 mg/dL (7.8-10.44); Carbon Dioxide 25 mmol/L (23-31); Chloride 99 mmol/L (98-107); Estimated GFR-MDRD 8; Glucose 77 mg/dL (83-110); Potassium 3.9 mmol/L (3.5-5.1); Sodium 137 mmol/L (136-145)
[2018-02-05] MEDS: Sodium Chloride 0.45% 1,000 ML IV SCH ×3 (06:28→21:06)
[2018-02-05] MEDS: Heparin 5,000 UNITS/ML VIAL SC SCH ×2 (08:24→20:18)
--- NOTE | 2018-02-05 09:20 | PRG ---
DATE OF SERVICE: 02/05/2018 SUBJECTIVE: Mr. Pires is an 82-year-old black male who was seen for an acute kidney injury second fabrizio to presumed acute tubular necrosis. He was initially admitted for acute respiratory failure seco ndary to anaphylactic shock. He was intubated and has already been weaned off. His dialysis, femora l, has not been functioning well. For that reason, a surgical consult was done for placement of a cu ffed hemodialysis catheter placement. He has some occasional diarrhea. No complaints of chest pain or shortness of breath. PHYSICAL EXAMINATION: VITAL SIGNS: Blood pressure is 161/68, heart rate 82, respiratory rate 18, temperature 98.7, pulse o x 94%. GENERAL: Awake, alert, comfortable, not in overt distress. SKIN: Adequate turgor. HEENT: He has slightly pale conjunctivae, anicteric sclerae. NECK: No neck mass, no carotid bruits, no JVD. CHEST: No deformities. LUNGS: Clear breath sounds, no wheezing, no crackles. HEART: Normal sinus rhythm. No murmur, no gallops or rubs. ABDOMEN: Globular, soft, nontender. No masses. EXTREMITIES: No edema, no deformities. MEDICATIONS: 02/05/2018 - Reviewed. LABORATORY: 02/05/2018 - White count 10.1, hemoglobin 8.3. Sodium 137, potassium 3.9, chloride 99, carbon dioxide 25, BUN 61, creatinine 7.06, glucose 77, calcium 7.8. ASSESSMENT AND PLAN: Acute kidney injury - secondary to presumed acute tubular necrosis, no evidence of renal recovery, continuing 3 times a week hemodialysis. Due to the poorly functioning femoral di alysis catheter a surgical consult has been done for placement of a cuffed hemodialysis catheter. Co ntinue supportive care. Overall, prognosis remains guarded. Please note the patient's stools were checked for C. diff and they were negative. Overall, I agree with current management.
--- NOTE | 2018-02-05 13:39 | PRG ---
DATE OF SERVICE: 02/05/2018 SERVICE: Pulmonary Medicine. INTERVAL HISTORY: The patient is doing fantastic from a respiratory standpoint. He denies any current chest pain, nausea, vomiting, fevers, or chills. He is breathing comfortably. There has been no interval change to his condition. He is tolerating his IV fluids just comfortably. He had 2 voids over the last 24 hours. PHYSICAL EXAMINATION: VITAL SIGNS: Afebrile with a T-max of 99.0. Pulse 76, blood pressure 167/64, respirations 21, saturation 93% on room air. GENERAL: The patient is awake, alert, in no apparent distress. LUNGS: Decent air entry. Dependent crackles are minimal. HEART: Normal rate, regular. ABDOMEN: Soft, nontender, nondistended. Bowel sounds are positive. MUSCULOSKELETAL: No cyanosis or clubbing. No pitting in the bilateral lower extremities. SKIN: Tenting has improved ever so slightly. The mucous membranes are much better. LABORATORY DATA: WBC 10.1, hemoglobin 8.3, platelets 55,000. Creatinine 7.06, BUN 61. Basic metabolic profile is, otherwise, unremarkable. Respiratory culture is growing Pseudomonas, serratia, and Staph aureus. C. difficile antigen and toxin are unremarkable. Blood cultures x2 are negative. ASSESSMENT: 1. Acute hypoxic respiratory failure, resolved. 2. Acute kidney injury, requiring hemodialysis, hopefully temporary. 3. Anaphylaxis with hypotension secondary to hymenoptera envenomation, resolved. 4. Delirium tremens, resolved. 5. Dehydration, improving. 6. Community-acquired pneumonia secondary to serratia, Pseudomonas, and methicillin-susceptible Staphylococcus aureus, likely an aspiration event. 7. Critical care weakness. PLAN: We will have the patient continue to work with physical therapy. We will continue gentle hydration over the next 24 hours, but I will drop our rate to 60 mL per hour. Hopefully, his kidney output will start to pickle maker. We will repeat laboratories tomorrow morning. We can hopefully hold off on putting in another tunneled dialysis catheter until the patient requires dialysis. Pulmonary will continue to follow along, however. [facility] CENTERMalini
--- NOTE | 2018-02-05 13:47 | ULT ---
ULTRASOUND GUIDED UPPER EXTREMITY VENOUS MAPPING: Date: 02/05/18 HISTORY: End-stage renal disease. Dialysis access. COMPARISON: None. TECHNIQUE: Christopher scale, color flow, Doppler imaging and spectral waveform analysis performed of the left and righ t upper extremity venous system. FINDINGS: RIGHT UPPER EXTREMITY CEPHALIC VEIN Proximal Humerus: 1.2 mm Mid Humerus: 1.4 mm Distal Humerus: 1.4 mm Antecubital Fossa: 1.7 mm Proximal Forearm: 0.9 mm Mid Forearm: 0.8 mm Distal Forearm: 0.9 mm BASILIC VEIN Proximal Humerus: 2.5 mm Mid Humerus: 1.3 mm Distal Humerus: 2.0 mm Antecubital Fossa: 1.7 mm Proximal Forearm: 0.6 mm Mid Forearm: 0.7 mm Distal Forearm: 0.7 mm BRACHIAL ARTERY: 3.8 mm RADIAL ARTERY: 2.2 mm ULNAR ARTERY: 1.7 mm LEFT UPPER EXTREMITY CEPHALIC VEIN Proximal Humerus: 1.1 mm Mid Humerus: 0.8 mm Distal Humerus: 1.4 mm Antecubital Fossa: 2.1 mm Proximal Forearm: 1.2 mm Mid Forearm: 1.0 mm Distal Forearm: 1.1 mm BASILIC VEIN Proximal, mid, and distal humerus cannot be assessed due to IV and bandage material. Antecubital Fossa: Not assessed. Proximal Forearm: 1.0 mm Mid Forearm: 0.7 mm Distal Forearm: 0.7 mm BRACHIAL ARTERY: 6.0 mm RADIAL ARTERY: 2.6 mm ULNAR ARTERY: 2.2 mm IMPRESSION: Venous mapping as above. POS: [facility]
--- NOTE | 2018-02-05 16:17 | CON ---
DATE OF CONSULTATION: 02/05/2018 HISTORY OF PRESENT ILLNESS: An 82-year-old male patient suffered bee stings, anaphylaxis shock and r esultant acute renal failure who has been followed by Dr. Moe. He has had previous anaphylaxis to be e stings several years ago. He did have a temporary groin catheter placed by Dr. Egan, but this was removed. He had a midline left upper arm IV placed despite his renal failure status. The patient i n the past has had compromise of his GFR 40s to 80s on different occasions. He did have a temporary dialysis catheter in his femoral vein that is not working well. I was consulted this morning to plac e a cuffed tunnel dialysis catheter and he had eaten full breakfast at 8:30 or 9 a.m. He is hemodyna mically stable and his electrolytes are stable and plan is to place a cuffed tunnel dialysis catheter tomorrow with adequate n.p.o. status for sedation. He also has had a midline IV placed and I have w cadeten an order to not place any more IVs above his wrist. We will plan placement of a central line IJ to protect his veins and to enable removal of the midline. ALLERGIES: None. SOCIAL HISTORY: Tobacco none. Alcohol none. MEDICATIONS: Protonix, amlodipine, and Tylenol. PAST SURGICAL HISTORY: Noncontributory. 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 PHYSICAL EXAMINATION: VITAL SIGNS: 5 foot 8, 164 pounds, 25 BMI, 98.7 degrees, 82, 161/68. SKIN: His skin is fragile and with multiple bruises. He has an upper arm midline hep lock. He has mild right hemiparesis. He has some mild speech disturbance. Femoral vein dialysis catheter has bee n removed. LUNGS: Clear to auscultation, few rhonchi at the base. CARDIAC: Regular rate and rhythm. ABDOMEN: Soft, nontender. EXTREMITIES: As noted above. LABORATORY DATA: Sodium 137, potassium 3.9, BUN 61, creatinine 7, GFR 8. Urine output 225 mL last 2 4 hours. ASSESSMENT AND PLAN: Acute renal failure superimposed on mild chronic kidney disease. We will plan placement of a cuffed tunneled dialysis catheter tomorrow once he is adequately n.p.o. We will also plan placement of central line to provide IV access and to remove his midline catheter. It is likely a left renal recovery, but it is best to protect his veins for future dialysis access in case he alessandroe ds it.
[2018-02-06 06:15] LABS: Anion Gap 21 mmol/L (10-20); BUN (Urea Nitrogen) 75 mg/dL (8.4-25.7); Calc. Creatinine Clearance 7 mL/min (70-130); Calcium 7.9 mg/dL (7.8-10.44); Carbon Dioxide 19 mmol/L (23-31); Chloride 100 mmol/L (98-107); Estimated GFR-MDRD 6; Glucose 77 mg/dL (83-110); Potassium 4.7 mmol/L (3.5-5.1); Sodium 135 mmol/L (136-145)
[2018-02-06 06:32] LABS: Band 8 % (5-11); Hemoglobin 8.7 g/dL (14.0-18.0); Lymphocytes 15 % (21-51); MDiff Complete? YES; Mean Corpuscular HGB CONC 34.1 g/dL (32.0-36.0); Mean Corpuscular Hemoglobin 30.4 pg (27.0-31.0); Mean Corpuscular Volume 89.1 fl (80.0-94.0); Mean Platelet Volume 6.7 fL (7.4-10.4); Monocytes 16 % (0-10); Myelocyte 1 % (0-0); Neutrophil 60 % (42-75); Platelet Count 286 thou/uL (130-400); RBC Distribution Width 14.6 % (11.5-14.5); Red Blood Cell (RBC) Count 2.87 mill/uL (4.70-6.10)
[2018-02-06] MEDS: Amlodipine 10 MG TAB PO SCH (08:58)
--- NOTE | 2018-02-06 10:06 | PRG ---
DATE OF SERVICE: 02/06/2018 SUBJECTIVE: Mr. Pires is an 82-year-old white male who was admitted for anaphylactic shock leadin g to acute respiratory failure as well as acute renal failure. He was initially intubated, but has n ow been extubated. He was also started on dialysis due to the worsening renal dysfunction. There wa s a problem with the femoral dialysis catheter and this will be replaced today with a cuffed dialysis catheter by Dr. Ivory this noon time. After the line placement the patient will undergo hemodialys is. No other complaints today. PHYSICAL EXAMINATION: VITAL SIGNS: Blood pressure is 186/80, heart rate 74, respiratory rate 24, temperature 98.8, pulse o x 95%. GENERAL: Awake, alert, supine, comfortable, not in distress. SKIN: Adequate turgor. HEENT: He has slightly pale conjunctivae, anicteric sclerae. NECK: No neck mass, no carotid bruits, no JVD. CHEST: No deformities. LUNGS: Decreased breath sounds. HEART: Normal sinus rhythm. No murmur, no gallops or rubs. ABDOMEN: Globular, soft, nontender, no masses. EXTREMITIES: No edema, no deformities. MEDICATIONS: 02/06/2018 - Reviewed. LABORATORY: 02/06/2018 - White count 8, hemoglobin 8.7, sodium 135, potassium 4.7, chloride 100, car bon dioxide 19, BUN 75, creatinine 9.04, glucose 77, calcium 7.9. ASSESSMENT AND PLAN: 1. Acute kidney injury - secondary to presumed acute tubular necrosis. I do not see any evidence of renal recovery. As a matter of fact, creatinine is higher this morning. He will undergo hemodialys is after placement of the cuffed hemodialysis catheter. Overall, I agree with current supportive man agement. 2. Status post anaphylactic shock - much improved. The patient has been extubated. The patient has also received a course of IV steroids. 3. Borderline anemia. We will simply observe this, p.r.n. blood transfusion. Overall, prognosis remains guarded.
[2018-02-06] MEDS: Heparin 5,000 UNITS/ML VIAL SC SCH ×2 (10:22→21:14)
[2018-02-06] MEDS ORDERED: Lidocaine 2% 10 ML INJ ONE (12:03)
[2018-02-06] MEDS ORDERED: Heparin 10,000 UNITS/1 ML VIAL ONE (12:03)
[2018-02-06] MEDS ORDERED: Sodium Chloride 0.9% 20 ML ONE (12:03)
[2018-02-06] MEDS ORDERED: Bupivacaine HCl 0.5%/Epinephrine 1:200,000/PF 30 ml Vial ONE (12:03)
[2018-02-06] MEDS ORDERED: Fentanyl 100 MCG/2 ML VIAL ONE (12:05)
[2018-02-06] MEDS ORDERED: PROPOFOL 20 ML ONE (12:05)
--- NOTE | 2018-02-06 13:38 | PRG ---
DATE OF SERVICE: 02/06/2018 SERVICE: Pulmonary Medicine. INTERVAL HISTORY: The patient is doing fine from a respiratory standpoint. He is breathing comforta gerard. He has no chest discomfort. He is going down for a tunnel catheter today. Otherwise, there pimentel s been no significant interval change to his condition. PHYSICAL EXAMINATION: VITAL SIGNS: Afebrile, pulse 84, blood pressure 177/76, respirations 30, saturation 92% on room air. GENERAL: The patient is awake, alert, no apparent distress. LUNGS: Decent air entry. Dependent crackles are present. No prolonged expiratory phase or wheezing is appreciated. HEART: Normal rate, regular. ABDOMEN: Soft, nontender, and nondistended. Bowel sounds are positive. MUSCULOSKELETAL: No cyanosis or clubbing. There is trace pitting in the bilateral lower extremities . NEUROLOGIC: Grossly nonfocal. LABORATORY DATA: WBC 8.0, hemoglobin 8.7, platelets 286,000. Creatinine 9.04, BUN is up trending to 75. Anion gap 21, bicarbonate 19. Basic metabolic profile is otherwise unremarkable. C. diff is u nremarkable. Blood cultures remain negative. Respiratory cultures have not changed. ASSESSMENT: 1. Acute hypoxic respiratory failure, resolved. 2. Acute kidney injury, requiring hemodialysis, hopefully temporary. 3. Community-acquired pneumonia secondary to Pseudomonas, methicillin sensitive Staph aureus and ser ratia, likely aspiration event. 4. Delirium tremens, resolved. 5. Dehydration, resolved. 6. Critical care weakness. DISCUSSION AND PLAN: We will continue supportive care for the patient over the next 24-48 hours. Es sentially, at this point, he is stable for transition out of the hospital. He completed a 7-day cour se of antibiotics. From my perspective, he remains stable for transition out of the hospital. We wi ll need to encourage p.o. and once he increases his intake, we will be able to get rid of his IV flui ds. We need to be careful with dialysis to make certain that he does not get too contracted again.
--- NOTE | 2018-02-06 14:27 | OP ---
DATE OF PROCEDURE: 02/06/2018 PREOPERATIVE DIAGNOSES: Acute renal failure, chronic kidney disease, lack of IV access. POSTOPERATIVE DIAGNOSES: Acute renal failure, chronic kidney disease, lack of IV access. PROCEDURES PERFORMED: Right IJ cuffed tunnel hemodialysis catheter, angiodynamics precurved. Left s ubclavian vein length. Left IJ triple lumen catheter. Fluoroscopy and ultrasound used. SURGEON: Dr. Seun Ivory. ANESTHESIA: Local 0.5% Marcaine with epinephrine, 30 mL, mixed with 2% Xylocaine, 10 mL. DESCRIPTION OF PROCEDURE: The patient was taken to the operating room where in the supine position, neck and chest were clipped of hair, prepared with ChloraPrep, draped in routine fashion. Local anes thetic infiltrated into skin and subcutaneous tissue about the operative site. The ultrasound My Single Pointan ce was used to cannulate the right and left internal jugular veins, placing the J wires, skin was inc ised sharply and enlarged. Stab incision made over the right chest to accommodate hemodialysis steven ter. Using the tunneling device, the precurved angiodynamics cuffed tunnel hemodialysis catheter faviola neled between the two incisions, placing the fabric cuff beneath the skin exit site and catheter secu red with 2 interrupted sutures of 3-0 nylon. Biopatch sterile dressings applied. Smaller medium siz ed dilators placed over the J-wire and the internal jugular vein removed. Dilator and pull-away govea th placed over the J-wire in superior vena cava and dilator and J-wire removed. Catheter placed with pull-away sheath. Pull-away sheath removed. Platysma approximated with 4-0 Monocryl, skin with sub dermal 4-0 Monocryl and DermaGlue applied. Each port aspirated blood and flushed with saline solutio n and heparinized saline solution 1000 units heparin per mL indicated volume of the port. Sterile dr jones applied. Seldinger technique used to place a left internal jugular vein triple lumen catheter securing it with 3-0 nylon suture and a Biopatch. Hemostasis gained at the entrance site with pursestring sutures of 3-0 nylon. Sterile dressings applied. Each port aspirated blood and flushed with saline solution. Fluoroscopic images revealed good line placements.
--- NOTE | 2018-02-06 14:47 | RAD ---
SINGLE VIEW OF THE CHEST: COMPARISON: 01/29/18. HISTORY: Central line placement in PACU. FINDINGS: A single view of the chest shows an enlarged cardiomediastinal silhouette. There is a dialysis steven ter with its tip in the superior vena cava. There is a left IJ central venous catheter with its tip in the superior vena cava. O pneumothorax is seen. Diffuse mixed alveolar subcentimeter interstitia l opacities may represent pulmonary edema. IMPRESSION: Status post central line placement without evidence of complication. POS: [facility]
[2018-02-06] MEDS ORDERED: Promethazine HCl 25 MG/ML VIAL IM PRN (14:53)
[2018-02-06] MEDS ORDERED: Ondansetron HCl/PF 4 MG/2 ML Vial IVP PRN (14:53)
[2018-02-06] MEDS ORDERED: Promethazine HCl 25 MG/ML VIAL SLOW IVP PRN (14:53)
[2018-02-06] MEDS: cloNIDine 0.1 MG TAB PO PRN (21:14)
[2018-02-07] MEDS: Sodium Chloride 0.45% 1,000 ML IV SCH ×2 (02:23→17:28)
[2018-02-07] MEDS: cloNIDine 0.1 MG TAB PO PRN (04:11)
[2018-02-07 05:55] LABS: Anion Gap 13 mmol/L (10-20); BUN (Urea Nitrogen) 38 mg/dL (8.4-25.7); Calc. Creatinine Clearance 11 mL/min (70-130); Calcium 7.7 mg/dL (7.8-10.44); Carbon Dioxide 26 mmol/L (23-31); Chloride 99 mmol/L (98-107); Estimated GFR-MDRD 10; Glucose 80 mg/dL (83-110); Potassium 3.7 mmol/L (3.5-5.1); Sodium 134 mmol/L (136-145)
[2018-02-07 06:22] LABS: Band 2 % (5-11); Eosinophils 1 % (0-10); Hemoglobin 7.8 g/dL (14.0-18.0); Lymphocytes 14 % (21-51); MDiff Complete? YES; Mean Corpuscular HGB CONC 35.6 g/dL (32.0-36.0); Mean Corpuscular Hemoglobin 31.2 pg (27.0-31.0); Mean Corpuscular Volume 87.7 fl (80.0-94.0); Mean Platelet Volume 6.5 fL (7.4-10.4); Monocytes 16 % (0-10); Neutrophil 67 % (42-75); Platelet Count 256 thou/uL (130-400); RBC Distribution Width 14.5 % (11.5-14.5); Red Blood Cell (RBC) Count 2.49 mill/uL (4.70-6.10); White Blood Cell (WBC) Count 5.6 thou/uL (4.8-10.8)
[2018-02-07] MEDS: Amlodipine 10 MG TAB PO SCH (09:22)
[2018-02-07] MEDS: Heparin 5,000 UNITS/ML VIAL SC SCH (09:25)
[2018-02-07 13:44] VITALS: BMI 24.8
[2018-02-07 16:35] VITALS: BP 164/77; TEMP 97.2
--- NOTE | 2018-02-07 18:42 | PRG ---
DATE OF SERVICE: 02/07/2018 SERVICE: Pulmonary Medicine. INTERVAL HISTORY: The patient is doing fine from a respiratory standpoint. He is breathing comfortably on room air. He denies any chest pain, nausea, vomiting, fevers or chills. There is no interval change to his condition. OBJECTIVE: VITAL SIGNS: Afebrile, pulse 77, blood pressure 156/52, respirations 20, saturation 95% on room air. GENERAL: The patient is awake, alert, no apparent distress. LUNGS: Excellent air entry. There are minimal crackles dependently. No prolonged expiratory phase or wheezing is appreciated. HEART: Normal rate, regular. ABDOMEN: Soft, nontender, nondistended. Bowel sounds are positive. MUSCULOSKELETAL: No cyanosis or clubbing. There is no pitting in the bilateral lower extremities. NEUROLOGIC: Grossly nonfocal. LABORATORY DATA: WBC 5.6, hemoglobin 7.8, platelets 256,000. Creatinine 5.39, BUN 38. Basic metabolic profile is essentially unremarkable otherwise. Respiratory cultures were previously growing Pseudomonas, serratia, and Staph aureus which was sensitive to methicillin. IMAGING: Chest x-ray demonstrates left IJ central venous catheter is in good position. There is a new tunneled vascular catheter that was placed in the right IJ. There is interval improvement in the fluffy opacifications throughout bilateral lung sanchez which are more predominantly displayed on the left. ASSESSMENT: 1. Acute hypoxic respiratory failure, resolved. 2. Acute kidney injury, requiring hemodialysis, hopefully temporary. 3. Community-acquired pneumonia secondary to Pseudomonas and methicillin- sensitive Staph aureus, and serratia, likely an aspiration event associated with his presentation, status post course of antibiotics. 4. Delirium tremens, resolved. 5. Dehydration, resolved. 6. Critical care weakness. DISCUSSION AND PLAN: The patient is in line for transition to an LTAC facility. From my perspective, he is stable for transition out of the hospital. We will need to continue with dialysis, intermittently. We will need to watch his volume status closely. Preferentially, we will keep him from getting on the dry side as I do think that his kidneys are going to start recovering soon enough. His urine output is starting to perk up just to a touch. [facility]
--- NOTE | 2018-02-10 09:39 | DIS ---
DATE OF ADMISSION: 01/20/2018 DATE OF DISCHARGE: 02/07/2018 ADMITTING DIAGNOSES: 1. Severe anaphylaxis due to bee sting with acute respiratory failure. 2. History of hypertension. 3. History of hyperlipidemia. 4. History of BEE STING allergy. FINAL DIAGNOSES: 1. Severe anaphylaxis due to bee sting with acute respiratory failure, resolved. 2. Acute kidney injury, on hemodialysis. 3. Hypertension. 4. Community-acquired pneumonia secondary to Pseudomonas and methicillin-resistant Staphylococcus au reus. 5. Delirium tremens, resolved. 6. Dehydration, corrected. 7. Acute kidney injury, possibly secondary to ischemic acute tubular necrosis. BRIEF SUMMARY OF HOSPITAL COURSE: Mr. Pires is an 82-year-old male admitted because of severe chris phylactic shock with respiratory failure. The patient was intubated at the scene, he was bitten, he had multiple bee stings more than 1000 in the face, head and neck. He was in respiratory failure and admitted to CCU. Pulmonary has seen the patient in CCU. He was continued on ventilator treatment a nd support. His kidney function was not normal, but creatinine 1.72 on admission, but it gradually d eteriorated in the next 3-4 days, creatinine went up to 5, then went up to 8.8. Consultation was lisa hirsch with Nephrology. Patient was seen by Dr. Moe, who felt patient has acute kidney injury, possibly t o acute tubular necrosis versus acute interstitial nephritis secondary to anaphylactic shock. He is to continue with fluids and steroids and monitor. Renal ultrasound was ordered, but his renal functi on continued to deteriorate. Creatinine went up to 9. He was initiated on temporary hemodialysis an d he was monitored. His anaphylaxis shock resolved. His blood pressure improved. He was able to br eathe on his own, so he was extubated and transferred to [facility], but patient still not eating much. He did not have much appetite and not ambulating at all. Still requiring hemodialysis and supportive c are. The patient was evaluated at long-term acute care facility in [place] where he was accepted, so he is being transferred to LTAC. We will continue hemodialysis there. We will continue his blood pr essure medications, amlodipine 10 mg daily, Tylenol p.r.n., Protonix 40 mg daily. At the time of dis charge, his vital signs were stable. His lungs are clear. Heart sounds regular. Abdomen is soft, n ontender. Bowel sounds present. DISCHARGE MEDICATIONS: Include amlodipine 10 mg daily, Protonix 40 mg daily, aspirin 81 mg daily, he feliciano 5000 units b.i.d., and Zofran p.r.n., DuoNebs q.i.d. p.r.n. The patient will continue hemodial ysis.
== END 2018-02-07 17:36 | DRG 917 ==
LOC: ERS 13:28 → CCU 13:52 → IMCU/EMU 02-04 00:37
PROVIDERS: ADMIT Emergency Medicine; ATTEND Emergency Medicine
PROC: 5A1955Z Respiratory Ventilation, Greater than 96 Consecutive Hours (ICD-10-PCS; principal; 2018-01-20)
PROC: 06HM33Z Insertion of Infusion Device into Right Femoral Vein, Percutaneous Approach (ICD-10-PCS; 2018-01-25)
PROC: 5A1D70Z Performance of Urinary Filtration, Intermittent, Less than 6 Hours Per Day (ICD-10-PCS; 2018-01-25)
PROC: 5A1D70Z Performance of Urinary Filtration, Intermittent, Less than 6 Hours Per Day (ICD-10-PCS; 2018-01-26)
PROC: 5A1D70Z Performance of Urinary Filtration, Intermittent, Less than 6 Hours Per Day (ICD-10-PCS; 2018-01-27)
PROC: 5A1D70Z Performance of Urinary Filtration, Intermittent, Less than 6 Hours Per Day (ICD-10-PCS; 2018-01-28)
PROC: 5A1D70Z Performance of Urinary Filtration, Intermittent, Less than 6 Hours Per Day (ICD-10-PCS; 2018-01-30)
PROC: 5A1D70Z Performance of Urinary Filtration, Intermittent, Less than 6 Hours Per Day (ICD-10-PCS; 2018-02-01)
PROC: 5A1D70Z Performance of Urinary Filtration, Intermittent, Less than 6 Hours Per Day (ICD-10-PCS; 2018-02-04)
PROC: 5A1D70Z Performance of Urinary Filtration, Intermittent, Less than 6 Hours Per Day (ICD-10-PCS; 2018-02-06)
PROC: 0JH63XZ Insertion of Tunneled Vascular Access Device into Chest Subcutaneous Tissue and Fascia, Percutaneous Approach (ICD-10-PCS; 2018-02-06)
PROC: 02HV33Z Insertion of Infusion Device into Superior Vena Cava, Percutaneous Approach (ICD-10-PCS; 2018-02-06)
PROC: 02HV33Z Insertion of Infusion Device into Superior Vena Cava, Percutaneous Approach (ICD-10-PCS; 2018-02-06)
DX: T63.441A Toxic effect of venom of bees, accidental (unintentional), initial encounter (principal); J96.01 Acute respiratory failure with hypoxia; N17.0 Acute kidney failure with tubular necrosis; J15.1 Pneumonia due to Pseudomonas; J15.212 Pneumonia due to Methicillin resistant Staphylococcus aureus; T78.2XXA Anaphylactic shock, unspecified, initial encounter; F10.231 Alcohol dependence with withdrawal delirium; I10 Essential (primary) hypertension; E78.5 Hyperlipidemia, unspecified; E86.0 Dehydration; Z91.030 Bee allergy status; Z86.73 Personal history of transient ischemic attack (TIA), and cerebral infarction without residual deficits; Z79.899 Other long term (current) drug therapy
CPT/HCPCS: 36415; 36416; 51702; 70450; 71045; 72125; 76770; 80048; 80053; 80202; 81001; 82570; 82805; 83735; 84100; 84300; 85025; 85049; 85300; 85362; 85379; 85384; 85610; 85730; 86704; 86706; 86803; 87040; 87070; 87077; 87186; 87205; 87324; 87340; 87449; 90935; 93005; 93306; 93970; 94002; 94003; 96365; 96366; 96374; A4216; C1752; C1769; C9113; G0257; G0365; G8978-GP-CN; G8979-GP-CK; G8987-GO-CL; G8988-GO-CJ; G8996-GN-CL; G8997-GN-CJ; J0670; J0692; J1200; J1630; J1644; J1940; J1956; J2405; J2543; J2704; J2920; J3010; J3370; J3480; J7050; J7070; P9047

== ENCOUNTER 2018-05-13 16:41 | Emergency (ER) | payer MEDICARE, MEDICAID ==
[2018-05-13 17:48] LABS: #Eosinphils 0.1 thou/uL (0.0-0.7); #Lymphocytes 2.7 thou/uL (1.20-3.40); #Monocytes 0.5 thou/uL (0.11-0.59); #Neutrophils 3.2 thou/uL (1.40-6.50); %Basophils 0.2 % (0.0-1.0); %Monocytes 8.2 % (0.0-10.0); %Neutrophils 48.6 % (42.0-75.0); Hemoglobin 11.7 g/dL (14.0-18.0); Mean Corpuscular HGB CONC 33.8 g/dL (32.0-36.0); Mean Corpuscular Hemoglobin 30.8 pg (27.0-31.0); Mean Corpuscular Volume 91.3 fL (78.0-98.0); Mean Platelet Volume 7.7 fL (7.4-10.4); Platelet Count 300 thou/uL (130-400); Red Blood Cell (RBC) Count 3.81 mill/uL (4.70-6.10); White Blood Cell (WBC) Count 6.5 thou/uL (4.8-10.8)
[2018-05-13 18:21] LABS: Lactic Acid 0.8 mmol/L (0.5-2.2)
[2018-05-13 18:32] LABS: Bilirubin Negative (Negative); Blood, Urine Negative (Negative); Clarity CLEAR (Clear); Glucose, Urine (Dipstick) Negative (Negative); Leukocyte Small (Negative); Nitrite Negative (Negative); Protein, Urine (Dipstick) Trace mg/dL (Neg-Trace); Specific Gravity, Urine 1.019 (1.002-1.036); Urobilinogen 0.2 mg/dL (0.2-1.0)
[2018-05-13 18:34] LABS: Bacteria/HPF None Seen HPF (None Seen); Hyaline Casts/LPF 0-3 HYALINE CAST LPF (0-3 Hyaline); Pathc Cast-AUWi Flag 0.14 (0-2.49); RBC/HPF 0-3 HPF (0-3); Squamous Epithelial 0-3 HPF (0-3); Yeast-AUWi Flag 10.3 (0-25.0)
[2018-05-13 18:34] LABS: ALT (SGPT) 28 U/L (8-55); AST (SGOT) 33 U/L (5-34); Albumin 4.2 g/dL (3.4-4.8); Alkaline Phosphatase 88 U/L (40-150); Anion Gap 10 mmol/L (10-20); BUN (Urea Nitrogen) 33 mg/dL (8.4-25.7); Bilirubin, Total 0.4 mg/dL (0.2-1.2); Calc. Creatinine Clearance 0 mL/min (70-130); Calcium 9.4 mg/dL (7.8-10.44); Carbon Dioxide 29 mmol/L (23-31); Chloride 104 mmol/L (98-107); Estimated GFR-MDRD 21; Globulin 3.9 g/dL (2.4-3.5); Glucose 123 mg/dL (83-110); Lipase 64 U/L (8-78); Potassium 4.1 mmol/L (3.5-5.1); Protein, Total 8.1 g/dL (5.8-8.1); Sodium 139 mmol/L (136-145)
[2018-05-13] MEDS ORDERED: cefTRIAXone\\ROCEPHIN 1 GM VIAL ONE ×2 (19:19→19:25)
[2018-05-13] MEDS ORDERED: Lidocaine 1% PF 5 ML VIAL ONE (19:26)
--- NOTE | 2018-05-13 19:36 | CT ---
CT ABDOMEN AND PELVIS NONCONTRAST: CLINICAL HISTORY: Abdominal pain. FINDINGS: Prominent colonic diverticulosis is present. There is cholelithiasis. No urolithiasis or obstructiv e uropathy. There is scattered vascular calcification. Nonspecific patchy opacities at each lung ba se are partially imaged with mild associated pleural-based density. There is a small hiatal hernia. Limited visualization of the low abdomen and pelvis due to prominent streak artifact from right hip hardware. There is diffuse osseous degenerative change. There is a subtle hypodensity at the lower pole right kidney, incompletely characterized on the basis of the noncontrast technique. Additional vague hypodensity seen at the posterolateral aspect of the mid left kidney, incompletely characterize d. Chronic posttraumatic sequela is seen within the right hemipelvis. IMPRESSION: 1. Cholelithiasis. 2. Colonic diverticulosis. 3. No urolithiasis or obstructive uropathy. 4. Evaluation of the lungs limited on the basis of the noncontrast technique. POS: ARPIT
--- NOTE | 2018-05-15 12:25 | ULT ---
ULTRASOUND ABDOMEN: Date: 05/15/18 HISTORY: Abdominal pain. FINDINGS: The pancreas, left lobe of liver, and aorta are not satisfactorily visualized due to patient body hab itus. Multiple gallstones are seen with gallbladder wall thickening measuring 4.0 mm. No pericholecystic fl uid is seen. Common duct measures 4.0 mm in diameter. No hydronephrosis noted on either side. Visuali zed portions of the aorta and IVC are unremarkable. No free fluid is seen. The cyst noted in the inferior pole of the right kidney on the recent CT scan is not visualized. IMPRESSION: Cholelithiasis. RECOMMENDATION: If there is concern for acute cholecystitis, further evaluation with HIDA scan is recommended. POS: ARPIT
== END 2018-05-13 19:55 | disposition home or self-care (01) ==
LOC: ERS 16:41
DX: N39.0 Urinary tract infection, site not specified (principal); I12.9 Hypertensive chronic kidney disease with stage 1 through stage 4 chronic kidney disease, or unspecified chronic kidney disease; N18.9 Chronic kidney disease, unspecified
CPT/HCPCS: 36415; 74176; 80053; 81003; 81015; 83605; 83690; 85025; 87086; 96372; J0696; J2001

== ENCOUNTER 2018-05-15 09:53 | Emergency (ER) | payer MEDICARE, OTHER ==
[2018-05-15 11:43] LABS: Bilirubin Negative (Negative); Blood, Urine Negative (Negative); Clarity CLEAR (Clear); Glucose, Urine (Dipstick) Negative (Negative); Leukocyte Small (Negative); Nitrite Negative (Negative); Protein, Urine (Dipstick) Negative (Neg-Trace); Specific Gravity, Urine 1.014 (1.002-1.036); Urobilinogen 0.2 mg/dL (0.2-1.0); pH, Urine 5.5 (5.0-9.0)
[2018-05-15 11:47] LABS: Bacteria/HPF None Seen HPF (None Seen); Hyaline Casts/LPF 0-3 HYALINE CAST LPF (0-3 Hyaline); Pathc Cast-AUWi Flag 0.14 (0-2.49); RBC/HPF 0-3 HPF (0-3); Squamous Epithelial 0-3 HPF (0-3)
[2018-05-15] MEDS ORDERED: Acetaminophen 325 MG TAB ONE (13:46)
== END 2018-05-15 14:14 | disposition home or self-care (01) ==
LOC: ERS 09:53
DX: R10.30 Lower abdominal pain, unspecified (principal); I12.9 Hypertensive chronic kidney disease with stage 1 through stage 4 chronic kidney disease, or unspecified chronic kidney disease; N18.9 Chronic kidney disease, unspecified; Z79.899 Other long term (current) drug therapy; Z79.82 Long term (current) use of aspirin
CPT/HCPCS: 81003; 81015

== ENCOUNTER 2019-07-12 20:38 | Emergency (ER) | payer MEDICARE, MEDICAID ==
--- NOTE | 2019-07-12 21:11 | RAD ---
Exam: Chest one view: HISTORY: Chest pain COMPARISON: 02/06/2018 FINDINGS: Minimal increased linear and interstitial parenchymal changes as well as some minimal pleural thicken ing noted bilaterally having more chronic appearance. Heart size is within normal limits. No confluent pneumonia, overt edema, or pleural effusion. IMPRESSION: Mild increased markings and pleural thickening bilaterally have a more chronic appearance. Atherosclerosis of the aorta. No significant acute process.
[2019-07-12 21:15] LABS: Mean Corpuscular HGB CONC 30.9 g/dL (32.0-36.0); Mean Corpuscular Hemoglobin 22.7 pg (27.0-31.0); Mean Corpuscular Volume 73.3 fL (78.0-98.0); RBC Distribution Width 17.8 % (11.5-14.5); Red Blood Cell (RBC) Count 4.87 mill/uL (4.70-6.10)
[2019-07-12 21:24] LABS: ALT (SGPT) 31 U/L (8-55); AST (SGOT) 34 U/L (5-34); Albumin 4.5 g/dL (3.4-4.8); Alkaline Phosphatase 116 U/L (40-110); Anion Gap 16 mmol/L (10-20); BUN (Urea Nitrogen) 30 mg/dL (8.4-25.7); Bilirubin, Total 0.5 mg/dL (0.2-1.2); Calc. Creatinine Clearance 0 mL/min (70-130); Calcium 9.2 mg/dL (7.8-10.44); Carbon Dioxide 21 mmol/L (23-31); Chloride 103 mmol/L (98-107); Estimated GFR-MDRD 24; Glucose 120 mg/dL (83-110); Lipase 49 U/L (8-78); Potassium 4.6 mmol/L (3.5-5.1); Protein, Total 8.5 g/dL (5.8-8.1); Sodium 135 mmol/L (136-145)
[2019-07-12 21:38] LABS: #Lymphocytes 1.2 thou/uL (1.20-3.40); #Monocytes 0.8 thou/uL (0.11-0.59); #Neutrophils 8.8 thou/uL (1.40-6.50); %Eosinophils 0.3 % (0.0-10.0); %Lymphocytes 11.4 % (21.0-51.0); %Monocytes 7.5 % (0.0-10.0); %Neutrophils 80.7 % (42.0-75.0); Anisocytosis SLIGHT = 6-15 cells (100X) (0-5/hpf); Elliptocytes SLIGHT = 2-5 cells (100X) (0-1/hpf); MDiff Complete? YES; Platelet Count 286 thou/uL (130-400); White Blood Cell (WBC) Count 10.8 thou/uL (4.8-10.8)
== END 2019-07-12 22:52 ==
LOC: ERS 20:38
DX: R07.89 Other chest pain (principal); R05 Cough; I12.9 Hypertensive chronic kidney disease with stage 1 through stage 4 chronic kidney disease, or unspecified chronic kidney disease; N18.9 Chronic kidney disease, unspecified; E78.00 Pure hypercholesterolemia, unspecified; Z79.82 Long term (current) use of aspirin; Z79.899 Other long term (current) drug therapy
CPT/HCPCS: 71045; 80053; 83690; 84484; 85025; 93005

== ENCOUNTER 2020-04-29 10:21 | Outpatient (CLI) | payer MEDICARE, MEDICAID ==
--- NOTE | 2020-04-29 11:27 | ULT ---
BILATERAL RENAL ULTRASOUND: Date: 04/29/2020 INDICATION: Chronic kidney disease. COMPARISON: Noncontrast CT of the abdomen and pelvis dated 05/13/2018. FINDINGS: Right kidney measures 9.2 x 5.4 x 4.9 cm. Left kidney measures 10.8 x 4.6 x 4.1 cm. There is a 1.9 cm cyst involving the inferior pole of the right kidney. There is a 1.4 cm cyst involving the superior pole of the left kidney. The pre-void bladder volume was 261.9 mL. IMPRESSION: 1. Bilateral renal cysts. 2. No hydronephrosis or solid renal lesion identified. POS: BH
== END 2020-04-29 10:22 | disposition home or self-care (01) ==
LOC: SCSULT 10:21
PROVIDERS: ATTEND Internal Medicine Nephrology
DX: N18.4 Chronic kidney disease, stage 4 (severe) (principal); N28.1 Cyst of kidney, acquired
CPT/HCPCS: 76770

== ENCOUNTER 2022-12-08 18:30 | Inpatient (IN) | payer MEDICARE, MEDICAID ==
[~2022-12-08 18:30] MED LIST changes: -Heparin 1,000 UNITS/ML VIAL ONE; +ISOVUE-370 76%-LOCM 1 ML ONE
[2022-12-08] MEDS ORDERED: Ondansetron PF 4 MG/2 ML Vial ONE ×2 (19:37→21:32)
[2022-12-08] MEDS ORDERED: Ketorolac Tromethamine 30 MG/ML VIAL ONE (19:37)
[2022-12-08 19:46] LABS: Bacteria/HPF None Seen HPF (None Seen); Bilirubin Negative (Negative); Blood, Urine 2+ (Negative); Clarity Turbid (Clear); Glucose, Urine (Dipstick) Normal (Negative); Ketone, Urine Negative (Negative); Leukocyte 500 Leu/uL (Negative); Nitrite Negative (Negative); Protein, Urine (Dipstick) 70 mg/dL (Neg-Trace); Squamous Epithelial 0-3 HPF (0-3); WBC/HPF Greater than 50 HPF (0-3)
[2022-12-08 19:46] LABS: #Lymphocytes 2.2 thou/uL (1.20-3.40); #Monocytes 0.7 thou/uL (0.11-0.59); %Basophils 0.3 % (0.0-1.0); %Eosinophils 0.7 % (0.0-10.0); %Lymphocytes 37.4 % (21.0-51.0); %Monocytes 10.9 % (0.0-10.0); %Neutrophils 50.7 % (42.0-75.0); Hemoglobin 14.4 g/dL (14.0-18.0); Mean Corpuscular HGB CONC 32.4 g/dL (32.0-36.0); Mean Corpuscular Hemoglobin 28.4 pg (27.0-31.0); Mean Corpuscular Volume 87.6 fl (78.0-98.0); Mean Platelet Volume 8.8 fL (7.4-10.4); Platelet Count 254 10x3/uL (130-400); RBC Distribution Width 16.5 % (11.5-14.5); Red Blood Cell (RBC) Count 5.08 mill/uL (4.70-6.10)
[2022-12-08 20:11] LABS: ALT (SGPT) 11 U/L (8-55); AST (SGOT) 21 U/L (5-34); Albumin 4.4 g/dL (3.4-4.8); Alkaline Phosphatase 117 U/L (40-110); Anion Gap 15 mmol/L (10-20); BUN (Urea Nitrogen) 21 mg/dL (8.4-25.7); Bilirubin, Total 0.4 mg/dL (0.2-1.2); Calc. Creatinine Clearance 0 mL/min (70-130); Calcium 9.3 mg/dL (7.8-10.44); Carbon Dioxide 29 mmol/L (23-31); Chloride 102 mmol/L (98-107); Estimated GFR 33; Globulin 4.1 g/dL (2.4-3.5); Glucose 139 mg/dL (83-110); Lipase 68 U/L (8-78); Potassium 3.8 mmol/L (3.5-5.1); Protein, Total 8.5 g/dL (5.8-8.1); Sodium 142 mmol/L (136-145)
[2022-12-08] MEDS ORDERED: cefTRIAXone\\ROCEPHIN 1 GM VIAL ONE (20:36)
[2022-12-08] MEDS ORDERED: Vancomycin 1 GM/200 ML (FROZEN) BAG ONE (21:19)
[2022-12-08] MEDS ORDERED: Pantoprazole 40 MG VIAL ONE (21:24)
[2022-12-08] MEDS ORDERED: Dicyclomine 20 MG TAB ONE (21:32)
[2022-12-08] MEDS ORDERED: Morphine 4 MG/ML VIAL ONE (21:32)
[2022-12-08] MEDS ORDERED: Ondansetron ODT 4 MG TAB SL PRN (23:45)
[2022-12-08] MEDS ORDERED: Acetaminophen 325 MG TAB PO PRN (23:45)
[2022-12-08] MEDS ORDERED: Ondansetron PF 4 MG/2 ML Vial IVP PRN (23:45)
[2022-12-09] MEDS: Sodium Chloride 0.9% 1,000 ML IV SCH ×2 (00:02→09:18)
[2022-12-09] MEDS ORDERED: Ondansetron ODT 4 MG TAB PO PRN (00:32)
[2022-12-09] MEDS ORDERED: Ondansetron PF 4 MG/2 ML Vial IVP PRN (00:32)
[2022-12-09 03:51] VITALS: BMI 32.1
[2022-12-09] MEDS ORDERED: FLU VACC QS2022-23(65YR UP)/PF 240 MCG/0.7 ML SYRINGE IM ONE (09:00)
[2022-12-09 09:02] LABS: ALT (SGPT) 8 U/L (8-55); AST (SGOT) 15 U/L (5-34); Albumin 3.5 g/dL (3.4-4.8); Alkaline Phosphatase 93 U/L (40-110); Anion Gap 12 mmol/L (10-20); BUN (Urea Nitrogen) 16 mg/dL (8.4-25.7); Bilirubin, Total 0.3 mg/dL (0.2-1.2); Calc. Creatinine Clearance 45 mL/min (70-130); Carbon Dioxide 25 mmol/L (23-31); Chloride 107 mmol/L (98-107); Estimated GFR 45; Globulin 3.2 g/dL (2.4-3.5); Glucose 93 mg/dL (83-110); Potassium 3.6 mmol/L (3.5-5.1); Protein, Total 6.7 g/dL (5.8-8.1); Sodium 140 mmol/L (136-145)
[2022-12-09 09:14] LABS: Band 4 % (5-11); Hemoglobin 12.2 g/dL (14.0-18.0); Lymphocytes 13 % (21-51); MDiff Complete? YES; Mean Corpuscular HGB CONC 31.8 g/dL (32.0-36.0); Mean Corpuscular Hemoglobin 28.1 pg (27.0-31.0); Mean Corpuscular Volume 88.4 fl (78.0-98.0); Mean Platelet Volume 8.6 fL (7.4-10.4); Monocytes 14 % (0-10); Neutrophil 58 % (42-75); Platelet Count 223 10x3/uL (130-400); Platelet Morphology Comment Appears Adequate; Polychromasia SLIGHT = 2-3 cells (100X) (0-2/hpf); RBC Distribution Width 16.3 % (11.5-14.5); Reactive Lymphocytes 11 % (0-10); Red Blood Cell (RBC) Count 4.34 mill/uL (4.70-6.10); White Blood Cell (WBC) Count 7.8 10x3/uL (4.8-10.8)
[2022-12-09] MEDS ORDERED: Potassium Chloride 20 MEQ TAB PO SCH (09:15)
[2022-12-09] MEDS: Pantoprazole 40 MG VIAL IVP SCH ×2 (09:18→21:29)
[2022-12-09] MEDS: Lisinopril/Hydrochlorothiazide 20 mg/12.5 mg Tablet PO SCH (21:27)
[2022-12-09] MEDS: cefTRIAXone\\ROCEPHIN 1 GM in Sodium Chloride 0.9% 100 ML IVPB SCH (21:29)
[2022-12-10 07:59] LABS: Hemoglobin 11.9 g/dL (14.0-18.0); Mean Corpuscular Hemoglobin 28.5 pg (27.0-31.0); Mean Corpuscular Volume 89.2 fl (78.0-98.0); Mean Platelet Volume 8.4 fL (7.4-10.4); Platelet Count 230 10x3/uL (130-400); RBC Distribution Width 16.5 % (11.5-14.5); Red Blood Cell (RBC) Count 4.19 mill/uL (4.70-6.10); White Blood Cell (WBC) Count 5.9 10x3/uL (4.8-10.8)
[2022-12-10 08:14] LABS: Anion Gap 15 mmol/L (10-20); BUN (Urea Nitrogen) 11 mg/dL (8.4-25.7); Calc. Creatinine Clearance 45 mL/min (70-130); Calcium 8.2 mg/dL (7.8-10.44); Carbon Dioxide 23 mmol/L (23-31); Chloride 104 mmol/L (98-107); Estimated GFR 46; Glucose 89 mg/dL (83-110); Potassium 3.6 mmol/L (3.5-5.1); Sodium 138 mmol/L (136-145)
[2022-12-10] MEDS: Ferrous Sulfate 325 MG TAB PO SCH (08:25)
[2022-12-10] MEDS: Lisinopril/Hydrochlorothiazide 20 mg/12.5 mg Tablet PO SCH ×2 (08:25→21:22)
[2022-12-10] MEDS: Pantoprazole 40 MG VIAL IVP SCH ×2 (08:26→21:10)
[2022-12-10] MEDS ORDERED: Potassium Chloride 20 MEQ TAB PO SCH ×2 (09:30→17:00)
[2022-12-10] MEDS ORDERED: PROPOFOL 200 MG/20 ML VIAL ONE (09:58)
[2022-12-10] MEDS ORDERED: Lidocaine 1% PF 5 ML VIAL ONE (09:58)
[2022-12-10] MEDS ORDERED: Succinylcholine Chloride 100 MG/5 ML SYRINGE FS ONE (09:58)
[2022-12-10 11:57] LABS: Band 2 % (5-11); Eosinophils 1 % (0-10); Lymphocytes 38 % (21-51); MDiff Complete? YES; Monocytes 16 % (0-10); Neutrophil 43 % (42-75); Polychromasia SLIGHT = 2-3 cells (100X) (0-2/hpf)
[2022-12-10] MEDS: Acetaminophen 325 MG TAB PO PRN (18:31)
[2022-12-10] MEDS: cefTRIAXone\\ROCEPHIN 1 GM in Sodium Chloride 0.9% 100 ML IVPB SCH (21:14)
[2022-12-11] MEDS: Acetaminophen 325 MG TAB PO PRN ×2 (06:16→11:48)
[2022-12-11] MEDS ORDERED: Guaifenesin DM 100-10/5 ML UDCUP PO PRN (06:46)
[2022-12-11] MEDS: Pantoprazole 40 MG VIAL IVP SCH ×2 (08:27→21:01)
[2022-12-11] MEDS: Ferrous Sulfate 325 MG TAB PO SCH (08:27)
[2022-12-11] MEDS: Lisinopril/Hydrochlorothiazide 20 mg/12.5 mg Tablet PO SCH ×2 (08:27→21:00)
[2022-12-11] MEDS ORDERED: Potassium Chloride 20 MEQ TAB PO SCH (09:45)
[2022-12-11] MEDS: Sucralfate 1 GM TAB PO SCH ×2 (18:01→21:01)
[2022-12-11] MEDS ORDERED: Simethicone Chewable 80 MG TAB PO PRN (23:25)
[2022-12-12] MEDS: Acetaminophen 325 MG TAB PO PRN (02:21)
[2022-12-12] MEDS ORDERED: Simethicone Chewable 80 MG TAB PO SCH (07:00)
[2022-12-12] MEDS: Sucralfate 1 GM TAB PO SCH ×2 (07:25→11:52)
[2022-12-12 08:13] LABS: Anion Gap 13 mmol/L (10-20); BUN (Urea Nitrogen) 8 mg/dL (8.4-25.7); Calc. Creatinine Clearance 47 mL/min (70-130); Calcium 8.9 mg/dL (7.8-10.44); Carbon Dioxide 27 mmol/L (23-31); Chloride 103 mmol/L (98-107); Estimated GFR 48; Glucose 80 mg/dL (83-110); Magnesium 1.6 mg/dL (1.6-2.6); Potassium 3.9 mmol/L (3.5-5.1); Sodium 139 mmol/L (136-145)
[2022-12-12] MEDS ORDERED: Potassium Bicarbonate/Cit Ac 20 MEQ TAB PO SCH (08:15)
[2022-12-12] MEDS ORDERED: Magnesium Sulfate 3 GM in Sodium Chloride 0.9% 100 ML IVPB SCH (08:30)
[2022-12-12] MEDS: Pantoprazole 40 MG VIAL IVP SCH (09:29)
[2022-12-12] MEDS: Ferrous Sulfate 325 MG TAB PO SCH (09:30)
[2022-12-12] MEDS: Lisinopril/Hydrochlorothiazide 20 mg/12.5 mg Tablet PO SCH (09:30)
[2022-12-12 15:38] VITALS: BP 122/61; TEMP 97.5
== END 2022-12-12 15:29 | disposition home or self-care (01) | DRG 392 ==
LOC: ERS 18:30 → T4-B 22:03 → OBSVTOIN 12-10 13:42
PROVIDERS: ADMIT Internal Medicine; ATTEND Internal Medicine
PROC: 0DB58ZX Excision of Esophagus, Via Natural or Artificial Opening Endoscopic, Diagnostic (ICD-10-PCS; principal; 2022-12-10)
DX: K21.00 Gastro-esophageal reflux disease with esophagitis, without bleeding (principal); N39.0 Urinary tract infection, site not specified; N17.9 Acute kidney failure, unspecified; I12.9 Hypertensive chronic kidney disease with stage 1 through stage 4 chronic kidney disease, or unspecified chronic kidney disease; N18.9 Chronic kidney disease, unspecified; K57.90 Diverticulosis of intestine, part unspecified, without perforation or abscess without bleeding; K44.9 Diaphragmatic hernia without obstruction or gangrene; K22.70 Barrett's esophagus without dysplasia; E78.00 Pure hypercholesterolemia, unspecified; R56.9 Unspecified convulsions; Z20.822 Contact with and (suspected) exposure to COVID-19; Z79.899 Other long term (current) drug therapy; Z98.890 Other specified postprocedural states; Z90.49 Acquired absence of other specified parts of digestive tract
CPT/HCPCS: 36415; 74177; 80048; 80053; 81003; 81015; 83605; 83690; 83735; 84484; 85025; 87040; 87077; 87086; 87186; 88305; 96365; 96367; 96375; 96376; C9113; G0378; J0696; J1885; J1956; J2270; J2405; J2704; J3370-JW; J3475; J3490; J7050; Q9966; U0003; U0005

== ENCOUNTER 2023-04-29 08:48 | Inpatient (IN) | payer MEDICARE, MEDICAID ==
[2023-04-29 09:38] LABS: Hemoglobin 11.3 g/dL (14.0-18.0); Manual Diff?? YES; Mean Corpuscular HGB CONC 31.7 g/dL (32.0-36.0); Mean Corpuscular Hemoglobin 26.6 pg (27.0-31.0); Mean Corpuscular Volume 83.8 fl (78.0-98.0); Mean Platelet Volume 11.1 fL (7.4-10.4); Platelet Count 183 10x3/uL (130-400); RBC Distribution Width 16.7 % (11.5-14.5); Red Blood Cell (RBC) Count 4.25 mill/uL (4.70-6.10); White Blood Cell (WBC) Count 4.2 10x3/uL (4.8-10.8)
[2023-04-29 09:53] LABS: Delete Auto Diff?? YES
[2023-04-29 10:15] LABS: ALT (SGPT) 10 U/L (8-55); AST (SGOT) 21 U/L (5-34); Albumin 3.6 g/dL (3.4-4.8); Alkaline Phosphatase 77 U/L (40-110); Anion Gap 12 mmol/L (10-20); BUN (Urea Nitrogen) 18 mg/dL (8.4-25.7); Bilirubin, Total 0.5 mg/dL (0.2-1.2); Calc. Creatinine Clearance 0 mL/min (70-130); Calcium 8.5 mg/dL (7.8-10.44); Carbon Dioxide 28 mmol/L (23-31); Chloride 98 mmol/L (98-107); Estimated GFR 40; Globulin 3.6 g/dL (2.4-3.5); Glucose 100 mg/dL (83-110); Lipase 30 U/L (8-78); Potassium 3.1 mmol/L (3.5-5.1); Protein, Total 7.2 g/dL (5.8-8.1); Sodium 135 mmol/L (136-145)
[2023-04-29 10:26] LABS: Band 20 % (5-11); CellaVision Operator ID LAB.GE; Eosinophils 1 % (0-10); Large Platelets 3.9 % (0-5); Lymphocytes 31 % (21-51); Metamyelocyte 1 % (0-0); Monocytes 20 % (0-10); Neutrophil 26 % (42-75); Platelet Adequacy Comment Platelets Normal; Polychromasia SLIGHT = 2-3 cells HPF (0-2); Total Cell Count 103
[2023-04-29] MEDS ORDERED: Potassium Chloride 20 MEQ TAB ONE (10:49)
[2023-04-29] MEDS ORDERED: Aspirin Chewable 81 MG TAB ONE (10:49)
[2023-04-29 11:32] LABS: Bacteria/HPF 4+ HPF (None Seen); Bilirubin Negative (Negative); Blood, Urine 3+ (Negative); CAUTI Indications for Culture Alt mental st,lethar; Clarity Turbid (Clear); Glucose, Urine (Dipstick) Normal (Negative); Ketone, Urine Negative (Negative); Leukocyte 500 Leu/uL (Negative); Nitrite Negative (Negative); Protein, Urine (Dipstick) 30 mg/dL (Neg-Trace); Specific Gravity, Urine 1.006 (1.002-1.036); Squamous Epithelial 0-3 HPF (0-3); Urobilinogen Normal mg/dL (Less than 2); WBC/HPF 21-50 HPF (0-3)
[2023-04-29 11:56] LABS: Transitional Epithelial 0-3 HPF (None Seen)
[2023-04-29 11:57] LABS: Urine Culture Reflex Yes Yes
[2023-04-29] MEDS ORDERED: Cefepime 2 GM VIAL ONE (12:32)
[2023-04-29] MEDS ORDERED: Meclizine HCl 25 MG TAB ONE (14:15)
[2023-04-29] MEDS: Meclizine HCl 25 MG TAB PO SCH ×2 (14:19→23:23)
[2023-04-29] MEDS ORDERED: Potassium Chloride 20 MEQ TAB PO SCH (17:15)
[2023-04-29] MEDS ORDERED: Atorvastatin Calcium 40 MG TAB PO SCH (21:00)
[2023-04-29] MEDS ORDERED: Acetaminophen 325 MG TAB PO PRN (22:11)
[2023-04-29] MEDS ORDERED: Potassium Chloride 10 MEQ in Premix Bag 1 BAG IVPB SCH (23:45)
[2023-04-30] MEDS: Cefepime 2 GM in Sodium Chloride 0.9% 100 ML IVPB SCH ×2 (02:45→12:04)
[2023-04-30 04:59] LABS: Cardiac Risk 5.1 (Less than 4.5)
[2023-04-30] MEDS: Aspirin 81 mg Enteric Coated Tablet PO SCH (08:42)
[2023-04-30] MEDS ORDERED: Atorvastatin Calcium 20 MG TAB PO SCH (09:00)
[2023-04-30] MEDS ORDERED: Amlodipine 10 MG TAB PO SCH (09:00)
[2023-04-30 09:52] LABS: Hemoglobin 11.4 g/dL (14.0-18.0); Manual Diff?? YES; Mean Corpuscular HGB CONC 31.3 g/dL (32.0-36.0); Mean Corpuscular Hemoglobin 26.6 pg (27.0-31.0); Mean Platelet Volume 11.3 fL (7.4-10.4); Platelet Count 188 10x3/uL (130-400); RBC Distribution Width 16.8 % (11.5-14.5); Red Blood Cell (RBC) Count 4.28 mill/uL (4.70-6.10); White Blood Cell (WBC) Count 3.6 10x3/uL (4.8-10.8)
[2023-04-30 10:17] LABS: Delete Auto Diff?? YES
[2023-04-30 11:00] LABS: Anion Gap 12 mmol/L (10-20); BUN (Urea Nitrogen) 15 mg/dL (8.4-25.7); Calc. Creatinine Clearance 40 mL/min (70-130); Calcium 8.4 mg/dL (7.8-10.44); Carbon Dioxide 28 mmol/L (23-31); Chloride 105 mmol/L (98-107); Estimated GFR 52; Glucose 96 mg/dL (83-110); Potassium 3.9 mmol/L (3.5-5.1); Sodium 141 mmol/L (136-145)
[2023-04-30] MEDS: Meclizine HCl 25 MG TAB PO SCH ×3 (12:04→21:06)
[2023-04-30 12:08] LABS: Band 1 % (5-11); Eosinophils 1 % (0-10); Neutrophil 45 % (42-75); Reactive Lymphocytes 1 % (0-10)
[2023-04-30 12:09] LABS: Lymphocytes 32 % (21-51); Monocytes 20 % (0-10); Platelet Adequacy Comment Platelets Normal; Polychromasia SLIGHT = 2-3 cells (100X) (0-2/hpf)
[2023-04-30] MEDS ORDERED: Sodium Chloride 0.9% 1,000 ML IV SCH (16:45)
[2023-04-30] MEDS: Heparin 5,000 UNITS/ML VIAL SC SCH (21:05)
[2023-05-01] MEDS: Cefepime 2 GM in Sodium Chloride 0.9% 100 ML IVPB SCH ×2 (02:11→14:39)
[2023-05-01] MEDS: Meclizine HCl 25 MG TAB PO SCH ×3 (05:23→21:40)
[2023-05-01 07:43] LABS: Hemoglobin 10.7 g/dL (14.0-18.0); Manual Diff?? YES; Mean Corpuscular HGB CONC 30.8 g/dL (32.0-36.0); Mean Corpuscular Hemoglobin 26.2 pg (27.0-31.0); Mean Platelet Volume 10.4 fL (7.4-10.4); Platelet Count 215 10x3/uL (130-400); RBC Distribution Width 16.6 % (11.5-14.5); Red Blood Cell (RBC) Count 4.08 mill/uL (4.70-6.10); White Blood Cell (WBC) Count 4.3 10x3/uL (4.8-10.8)
[2023-05-01 07:57] LABS: Delete Auto Diff?? YES
[2023-05-01 08:06] LABS: Anion Gap 14 mmol/L (10-20); BUN (Urea Nitrogen) 13 mg/dL (8.4-25.7); Calc. Creatinine Clearance 39 mL/min (70-130); Calcium 8.5 mg/dL (7.8-10.44); Carbon Dioxide 26 mmol/L (23-31); Chloride 102 mmol/L (98-107); Estimated GFR 50; Glucose 106 mg/dL (83-110); Potassium 3.6 mmol/L (3.5-5.1); Sodium 138 mmol/L (136-145)
[2023-05-01 09:21] LABS: Band 13 % (5-11); CellaVision Operator ID LAB.GE; Eosinophils 2 % (0-10); Lymphocytes 39 % (21-51); Metamyelocyte 1 % (0-0); Monocytes 13 % (0-10); Myelocyte 1 % (0-0); Neutrophil 29 % (42-75); Platelet Adequacy Comment Platelets Decreased; Polychromasia SLIGHT = 2-3 cells HPF (0-2); Reactive Lymphocytes 4 % (0-10); Total Cell Count 104
[2023-05-01] MEDS: Heparin 5,000 UNITS/ML VIAL SC SCH ×3 (09:54→21:40)
[2023-05-01] MEDS: Aspirin 81 mg Enteric Coated Tablet PO SCH (09:54)
[2023-05-01] MEDS ORDERED: Atorvastatin Calcium 40 MG TAB PO SCH (21:00)
[2023-05-02] MEDS: Cefepime 2 GM in Sodium Chloride 0.9% 100 ML IVPB SCH ×2 (02:28→13:07)
[2023-05-02] MEDS: Meclizine HCl 25 MG TAB PO SCH (06:42)
[2023-05-02] MEDS: Heparin 5,000 UNITS/ML VIAL SC SCH (09:30)
[2023-05-02] MEDS: Aspirin 81 mg Enteric Coated Tablet PO SCH (09:30)
[2023-05-02 12:28] VITALS: BP 134/60; TEMP 97.3
== END 2023-05-02 13:07 | disposition home or self-care (01) | DRG 690 ==
LOC: ERS 08:48 → ERHOLD 11:19 → 2SE 16:41 → OBSVTOIN 04-30 16:54
PROVIDERS: ADMIT Internal Medicine; ATTEND Internal Medicine
DX: N39.0 Urinary tract infection, site not specified (principal); E87.1 Hypo-osmolality and hyponatremia; N17.9 Acute kidney failure, unspecified; R42 Dizziness and giddiness; N18.30 Chronic kidney disease, stage 3 unspecified; R41.82 Altered mental status, unspecified; E87.6 Hypokalemia; E78.00 Pure hypercholesterolemia, unspecified; Z79.899 Other long term (current) drug therapy; Z90.49 Acquired absence of other specified parts of digestive tract; Z98.890 Other specified postprocedural states; Z79.82 Long term (current) use of aspirin; Z79.2 Long term (current) use of antibiotics; I12.9 Hypertensive chronic kidney disease with stage 1 through stage 4 chronic kidney disease, or unspecified chronic kidney disease
CPT/HCPCS: 36415; 70450; 70551; 71045; 80048; 80053; 80061; 81001; 83690; 83735; 83880; 85025; 87040; 87077; 87086; 87186; 93005; 93306; 93880; 94760; 95712; 95819; 95957; J0692; J1644; J3480; J3490; J7050